=== PATIENT | male | born 1985 | race Caucasian/White ===

== ENCOUNTER → 2017-11-28 08:16 | Outpatient (POV) | payer SELFPAY | PROVIDERS: Visit Provider Dentist | DX: Z00.00 Encounter for general adult medical examination without abnormal findings (principal) ==

== ENCOUNTER → 2017-12-12 08:17 | Outpatient (POV) | payer SELFPAY | PROVIDERS: Visit Provider Dentist | DX: Z00.00 Encounter for general adult medical examination without abnormal findings (principal) ==

== ENCOUNTER 2021-04-11 07:21 | Emergency (ER) | payer OTHER, SELFPAY ==
[2021-04-11 07:22] VITALS: BP 142/82; PULSE 55; RESP 16; TEMP 36.8; O2SAT 99; BMI 21.7
--- NOTE | 2021-04-11 07:36 | CT_ITS ---
PROCEDURE: CT ABDOMEN PELVIS WO CON CLINICAL INDICATION: flank pain Left flank pain COMPARISON: No exams were available for comparison TECHNIQUE: Axial images obtained with sagittal and coronal reformats. All CT scans at the facility use one or more dose reduction, viz: automated exposure control, ma/kV adjustment per patient size (including targeted exams where dose is matched to indication, i.e. head), or iterative reconstruction technique. FINDINGS: LOWER THORAX: Gynecomastia. ABDOMEN & PELVIS: The liver, spleen, adrenal glands, and pancreas have an unremarkable appearance. Gallbladder is slightly distended. There are small bilateral renal calculi. The largest is in the left kidney measuring approximately 4 mm. There is mild left hydronephrosis and hydroureter secondary to a 4 mm stone in the distal aspect of the ureter approximately 1.5 cm proximal to the UVJ. No evidence of appendicitis. No intestinal obstruction or free air. Mild nonspecific thickening noted of the descending colon. No stranding of the pericolic fat. This may be due to nondistention. Please correlate with clinical parameters as mild colitis could have a similar appearance No acute bony findings. There are 2 too small sclerotic foci of the right femoral head which may be due to bone islands IMPRESSION: 4 mm distal ureteral stone on the left causing mild left-sided obstructive uropathy. Bilateral nephrolithiasis. Mild nonspecific thickening noted of the descending colon. No stranding of the pericolic fat. This may be due to nondistention. Please correlate with clinical parameters as mild colitis could have a similar appearance Dictated by: Kodak Donohue MD 04/11/2021 08:28 Kodak Donohue MD in [place] 04/11/2021 08:30
[2021-04-11 07:50] LABS: Coronavirus 19, PCR Not Detected (NotDetected); Influenza A, PCR Not Detected (NotDetected); Influenza B, PCR Not Detected (NotDetected)
[2021-04-11 07:57] LABS: Basophils % 0.6 % (0.1-2.0); Eosinophils # 0.1 K/mm3 (0.0-0.4); Eosinophils % 1.6 % (0.1-12.0); Hematocrit 46.6 % (42.0-52.0); Hemoglobin 15.9 g/dL (14.1-18.0); Lymphocytes # 1.2 K/mm3 (0.7-4.5); Lymphocytes % 29.2 % (10-50); Mean Corpuscular HGB Conc 34.1 g/dL (31.8-35.4); Mean Corpuscular Hemoglobin 30.3 pg (27.0-31.2); Mean Corpuscular Volume 88.8 fl (80-94); Mean Platelet Volume 7.7 fl (7.4-10.4); Monocytes # 0.3 K/mm3 (0.1-1.0); Monocytes % 6.3 % (1.7-9.3); Neutrophils # 2.6 K/mm3 (1.8-7.8); Neutrophils % 62.3 % (37.0-80.0); Platelet Count 212 K/mm3 (142-424); Red Blood Count 5.25 M/mm3 (4.60-6.20); Red Cell Distribution Width 12.8 % (11.5-17.5); White Blood Count 4.1 K/mm3 (4.8-10.8)
--- NOTE | 2021-04-11 07:58 | PC.NURSE ---
Pt is going to RAD
[2021-04-11 07:59] LABS: Microscopic, Urine URINE MICROSCOPIC (MICROSCOPIC)
[2021-04-11 08:00] LABS: Appearance,Urine CLEAR (Clear); Bilirubin,Urine Negative (Negative); Blood, Urine 3+ (Negative); Color,Urine YELLOW (Yellow); Glucose,Urine (UA) Negative (Negative); Ketones,Urine Negative (Negative); Leukocyte Esterase,Urine Negative (Negative); Nitrate,Urine Negative (Negative); PH,Urine 5.5 (5.0-8.5); Protein,Urine Negative (Negative); Specific Gravity, Urine >= 1.030 (1.005-1.030); Urobilinogen,Urine 0.2 EU/dl (0.2)
[2021-04-11 08:01] LABS: Chloride 106 mmol/L (98-107); Potassium 4.1 mmoL/L (3.5-5.1); Sodium 140 mmol/L (136-145)
[2021-04-11 08:03] LABS: Alanine Aminotransferase 19 U/L (12-78); Aspartate Amino Transferase 29 U/L (17-59); Blood Urea Nitrogen 15 mg/dl (9-20); Creatinine Clearance Estimated 107 mL/min (50-200); Estimated Glomerular Filt Rate 86 ml/min (>60); GFR (African American) 103 ML/MIN (>60)
[2021-04-11 08:04] LABS: Albumin Level 4.5 g/dl (3.5-5.0); Albumin/Globulin Ratio 1.7 (1.1-1.8); Alkaline Phosphatase 46 U/L (38-126); Anion Gap 11.1 mEq/L (5-15); Bilirubin,Total 0.2 mg/dl (0.2-1.3); Calcium 9.8 mg/dl (8.4-10.2); Carbon Dioxide 27 mmol/L (22.0-30.0); Globulin 2.7 g/dL (1.3-3.2); Glucose 116 mg/dl (74-100); Total Protein,Serum 7.2 g/dl (6.3-8.2)
--- NOTE | 2021-04-11 08:20 | HMH.EDGENADL ---
ED Disposition Clinical Impression: Left ureteral calculus Disposition: Home, Self-Care Condition on Discharge: Fair Instructions: DI for Kidney Stones Additional Instructions: Flomax as prescribed Percocet and/or Toradol as needed for pain. Zofran as needed for nausea and vomiting. Additional instructions for KIDNEY STONE (URETERAL CALCULUS): See your physician as soon as possible for further evaluation. Drink plenty of fluids. Strain your urine and save any stones you catch. Return immediately if you develop a fever or have uncontrollable vomiting or uncontrollable pain. What is known about DIET and KIDNEY STONES: Most kidney stones contain calcium oxalate. The logical assumption would be that you should avoid calcium and oxalate in your diet. Contrary to what you would think, this is not necessarily the case. What is actually recommended for kidney stone prevention is a diet that contains MODERATELY HIGH AMOUNTS OF CALCIUM and is LOW IN SODIUM with PLENTY OF FLUIDS. Avoiding oxalate containing foods is recommended by some experts, but is controversial. Following the DASH (Dietary Approaches to Stop Hypertention) has been shown to significantly reduce the incidence of kidney stones. The DASH diet encourages you to reduce the sodium in your diet and eat a variety of foods rich in nutrients that help lower blood pressure, such as potassium, calcium and magnesium. Recommendations: Fluids: It is widely agreed upon that you need to drink plenty of fluids. A minimum would be 8-10 glasses (8 oz each) of fluid per day. Some experts recommend as much as 14-15 glasses a day. Sodium: The way to lower calcium in your urine is to lower your sodium intake. Try not to get more than 1500 mg a day. Calcium: Dietary calcium prevents absorption of oxalate. Make sure you get about 1000 to 1200 mg a day. You can get enough calcium from dairy products without taking supplements. Calcium should be ingested with meals, not in between meals. You need to get your calcium at mealtime to decrease the absorption of oxalate from other foods. Oxalate: Although some experts recommend avoiding oxalate in your diet, there have been no studies that prove this works. Eating more calcium will reduce oxalate absorption, and is probably all that is needed to reduce oxalate in your urine. Oxalate containing foods are generally good for you in all other respects - leafy greens, nuts, etc... So avoiding them unnecessarily might not be the best thing for your health. If you want to do something to avoid oxalate, avoid spinach and rhubarb - those are extremely high in oxalate (or at least eat a high calcium meal with these). ALSO: If you retrieve your stone by straining your urine, take it to your physician for stone analysis, which can help tailor your dietary recommendations. For further reading, check out the [facility] web page about the kidney stone diet: [email or web address] Additional instructions for CONTROLLED SUBSTANCES: You have been prescribed a medication that is a controlled substance. Controlled substances include pain medications known as opiates and sedative nerve medications known as benzodiazepines. Tramadol, fioricet, and gabapentin are also controlled substances. Some common opiates include: Codeine (such as Tylenol #3) Hydrocodone (Vicodin, Lortab, Lorcet, [place]) Oxycodone (Percocet, Percodan, Oxycodone, Oxy IR) Some common benzodiazepines include: Diazepam (Valium) Lorazepam (Ativan) Alprazolam (Xanax) Clonazepam (Klonopin) Oxazepam (Serax) All of these controlled substances are highly addictive and frequently abused. Misuse can and frequently does lead to addiction as well as overdose and . Medication should be stored in a locked cabinet or other secure storage unit. Do not store the medication in a motor vehicle. Short term s
[2021-04-11 09:13] VITALS: BP 134/69; PULSE 67; RESP 16; TEMP 36.6; O2SAT 99
== END 2021-04-11 09:15 | disposition home or self-care (01) ==
PROVIDERS: Emergency Medicine; Emergency Provider Emergency Medicine
DX: N20.0 Calculus of kidney (principal); Z20.822 Contact with and (suspected) exposure to COVID-19
CPT/HCPCS: 74176; 80053; 81001; 85025; 96374; 96375; 99283; C9803; J2405; U0003; U0005

== ENCOUNTER 2021-06-12 20:28 | Emergency (ER) | payer OTHER, SELFPAY ==
--- NOTE | 2021-06-12 20:26 | ECG_ITS ---
APPROVED REPORT Exam: Resting ECG HR:85 bpm ECG Measurements Heart Rate 85 AXES MD 167 P 78 QRSd 99 QRS 74 QT 328 T 73 QTc 370 Conclusion SINUS RHYTHM POSSIBLE LEFT ATRIAL ENLARGEMENT [-0.1mV P-WAVE IN V1/V2] BORDERLINE ECG UNCONFIRMED REPORT Electronically signed by : Jon Barnett MD 06/13/2021 13:48:25
[2021-06-12 20:29] VITALS: BP 135/87; PULSE 84; RESP 20; TEMP 36.7; O2SAT 98; BMI 20.5
--- NOTE | 2021-06-12 20:40 | HMH.EDHA ---
ED Disposition Clinical Impression: Migraine Qualifiers: Migraine type: unspecified Status migrainosus presence: without status migrainosus Intractability: not intractable Qualified Code(s): G43.909 - Migraine, unspecified, not intractable, without status migrainosus Disposition: Home, Self-Care Condition on Discharge: Good Instructions: DI for Migraine Additional Instructions: use meds and see pcp and neuro for follow up Referrals: Provider,MD Sally [Primary Care Provider] - Casi Kowalski MD [Staff Physician] - - Critical Care Critical Care Time: No Attestation: On 06/12/21, the high probability of a clinically significant, sudden or life threatening deterioration of the following system(s) required my full and direct attention, intervention and personal management. The time I documented below is in addition to time spent performing reported procedures but includes the following listed in this critical care notation. Medical Decision Making - Medical Records Medical records reviewed: Yes: I reviewed the patient's medical records. - Mars Inquiry Pt receiving controlled substance: No Vital Signs: 06/12/21 20:29 Temperature 98.0 F Temperature Source Oral Pulse Rate [Apical] 84 Respiratory Rate 20 Blood Pressure [Right Arm] 135/87 Blood Pressure Mean [Right Arm] 103 Blood Pressure Source [Right Arm] Automatic Cuff Blood Pressure Position [Right Arm] Sitting 02 Sat by Pulse Oximetry 98 Oxygen Delivery Method Room Air - Lab Data Lab results reviewed: Yes: I reviewed the patient's lab results. Lab Results 06/12/21 20:31: WBC 11.1 H, RBC 5.41, Hgb 16.1, Hct 48.7, MCV 89.9, MCH 29.7, MCHC 33.1, RDW 13.1, Plt Count 221, MPV 8.3, Neut % (Auto) 91.1 H, Lymph % (Auto) 5.5 L, Gem % (Auto) 2.9, Eos % (Auto) 0.1, Baso % (Auto) 0.5, Neut # (Auto) 10.1 H, Lymph # (Auto) 0.6 L, Gem # (Auto) 0.3, Eos # (Auto) 0.0, Baso # (Auto) 0.1 06/12/21 20:31: Sodium 137, Potassium 3.8, Chloride 102, Carbon Dioxide 26, Anion Gap 12.8, BUN 13, Creatinine 0.90, Estimated Creat Clear 118, Estimated GFR 96, Est GFR ( Amer) 116, Glucose 142 H, Calcium 9.4, Total Bilirubin 1.0, AST 27, ALT 20, Alkaline Phosphatase 52, C-Reactive Protein 0.8, Total Protein 7.4, Albumin 4.7, Globulin 2.7, Albumin/Globulin Ratio 1.7, Procalcitonin 0.044 Result diagrams: 06/12/21 20:31 06/12/21 20:31 Orders (Tests/Meds): ED MEDICATIONS Generic Name Dose Route Start Last Admin Trade Name Freq PRN Reason Stop Dose Admin Sodium Chloride 1,000 mls @ 999 mls/hr 06/12/21 20:45 06/12/21 20:45 Sod Chlor 0.9% 1000ml Bag IV 06/12/21 21:45 999 mls/hr .Q1H1M YUMIKO Administration Discontinued Medications Generic Name Dose Route Start Last Admin Trade Name Freq PRN Reason Stop Dose Admin Diphenhydramine HCl 25 mg 06/12/21 20:41 06/12/21 20:45 Diphenhydramine 50mg/Ml Vial IV 06/12/21 20:42 25 mg ONCE ONE Administration Ketorolac Tromethamine 30 mg 06/12/21 20:39 06/12/21 20:45 Ketorolac 30mg/Ml Vial IV 06/12/21 20:40 30 mg ONCE ONE Administration Promethazine HCl 25 mg 06/12/21 20:39 06/12/21 20:45 Promethazine Hcl 25mg/Ml 1ml Vial IV 06/12/21 20:40 25 mg ONCE ONE Administration Sodium Chloride 25 ml 06/12/21 20:39 06/12/21 20:45 Sodium Chloride 0.9% 25ml Bag IV 06/12/21 20:40 25 ml ONCE ONE Administration ORDERS Category Date Time Status Complete Blood Count Auto Diff Stat Lab 06/12/21 20:31 Results Erythrocyte Sedimentation Rate Stat Lab 06/12/21 20:31 Results Medical Decision Narrative: has hx of same with migraine and will treat as migraine Headache HPI - General Chief Complaint: Headache Stated Complaint: left sided numbness Time Seen by Provider: 06/12/21 20:40 Mode of Arrival: Ambulatory Source of Information: Patient, EMS, Medical Record Limitations: No Limitations Description of Symptoms (Recalled from ER Triage Doc. by RN): Pt states at 3 pm he began
[2021-06-12 20:51] LABS: Basophils # 0.1 K/mm3 (0-0.2); Basophils % 0.5 % (0.1-2.0); Eosinophils % 0.1 % (0.1-12.0); Hematocrit 48.7 % (42.0-52.0); Hemoglobin 16.1 g/dL (14.1-18.0); Lymphocytes # 0.6 K/mm3 (0.7-4.5); Lymphocytes % 5.5 % (10-50); Mean Corpuscular HGB Conc 33.1 g/dL (31.8-35.4); Mean Corpuscular Hemoglobin 29.7 pg (27.0-31.2); Mean Corpuscular Volume 89.9 fl (80-94); Mean Platelet Volume 8.3 fl (7.4-10.4); Monocytes # 0.3 K/mm3 (0.1-1.0); Monocytes % 2.9 % (1.7-9.3); Neutrophils # 10.1 K/mm3 (1.8-7.8); Neutrophils % 91.1 % (37.0-80.0); Platelet Count 221 K/mm3 (142-424); Red Blood Count 5.41 M/mm3 (4.60-6.20); Red Cell Distribution Width 13.1 % (11.5-17.5); White Blood Count 11.1 K/mm3 (4.8-10.8)
[2021-06-12 20:52] LABS: Alanine Aminotransferase 20 U/L (12-78); Albumin Level 4.7 g/dl (3.5-5.0); Albumin/Globulin Ratio 1.7 (1.1-1.8); Alkaline Phosphatase 52 U/L (38-126); Anion Gap 12.8 mEq/L (5-15); Aspartate Amino Transferase 27 U/L (17-59); Blood Urea Nitrogen 13 mg/dl (9-20); Calcium 9.4 mg/dl (8.4-10.2); Carbon Dioxide 26 mmol/L (22.0-30.0); Chloride 102 mmol/L (98-107); Creatinine Clearance Estimated 118 mL/min (50-200); Estimated Glomerular Filt Rate 96 ml/min (>60); GFR (African American) 116 ML/MIN (>60); Globulin 2.7 g/dL (1.3-3.2); Glucose 142 mg/dl (74-100); Potassium 3.8 mmoL/L (3.5-5.1); Sodium 137 mmol/L (136-145); Total Protein,Serum 7.4 g/dl (6.3-8.2)
[2021-06-12 20:57] LABS: C-Reactive Protein 0.8 mg/L (0-4)
[2021-06-12 21:06] LABS: MANUAL DIFFERENTIAL MANUAL DIFFERENTIAL (MANUAL DIFF)
[2021-06-12 21:11] LABS: Procalcitonin 0.044 ng/mL (0.0-2.0)
[2021-06-12 21:27] VITALS: BP 130/80; PULSE 80; RESP 20; TEMP 36.8; O2SAT 99
[2021-06-12 22:02] LABS: Erythrocyte Sedimentation Rate 1 mm/hr (0-15)
[2021-06-12 22:23] LABS: Lymphocytes % 8 % (10-50); Monocytes % 4 % (2-9); Neutrophils % 87 % (42-76); Platelet Estimate Normal; Total Cells Counted 100
== END 2021-06-12 21:28 | disposition home or self-care (01) ==
PROVIDERS: Emergency Provider Emergency Medicine
DX: G43.909 Migraine, unspecified, not intractable, without status migrainosus (principal)
CPT/HCPCS: 80053; 84145; 85007; 85025; 85651; 86140; 93005; 96365; 96375; 99282; 99284

== ENCOUNTER 2022-01-13 10:06 | Emergency (ER) | payer MEDICAID, SELFPAY ==
--- NOTE | 2022-01-13 10:21 | EXP.UTC ---
Discharge Plan Disposition Patient Disposition: Home, Self-Care Condition: Good Prescriptions Prescriptions: No Action amoxicillin 500 MG Capsule 500 mg PO TID hydrocodone-acetaminophen 1 TAB Tablet 1 - 2 tab PO Q6HP PRN (Reason: DENTAL PAIN AFTER PROCEDURE) ibuprofen 600 MG Tablet 600 mg PO Q6H PRN (Reason: DENTAL PAIN AFTER PROCEDURE) oxycodone-acetaminophen 1 EACH tablet 1 tab PO Q6HP PRN (Reason: Moderate To Severe Pain) Qty: 10 0RF ketorolac 10 MG tablet 10 mg PO Q6HP PRN (Reason: Moderate Pain) Qty: 10 0RF tamsulosin 0.4 MG capsule 0.4 mg PO HS Qty: 10 0RF ondansetron 4 MG tablet,disintegrating 4 mg PO TIDP PRN (Reason: Nausea And Vomiting) Qty: 10 0RF Referrals Follow up/Referrals: Provider,Referral, MD [Primary Care Provider] - See instructions Activity Restrictions/Add. Instructions Additional Instructions/Restrictions: Follow up with your regular doctor or return here for any issues. Clinical Impressions Clinical Impression: Encounter for drug screening Instructions Patient Instructions: Toxicology Screen, Drug Tests: Don't Fall Victim to a 'False-Positive' Discharge ED Provider: Willy Shine [facility] HPI General Stated complaint: blood test Time Seen by Provider: 01/13/22 10:18 History of Present Illness Provider Complaint: He is here because he was advised by the state family welfare social work professor to have a urine drug screen done here. The mother of his child has made accusations that he is taking illicit drugs. He denies this accusation. He denies that the uds needs to be collected with chain of custody forms. He states that he was told to just get a drug screen done here first. Related Data Home Medications Medication Instructions Recorded Confirmed amoxicillin 500 mg capsule 500 mg PO TID TOOTH INFECTION 12/05/17 12/05/17 hydrocodone 5 mg-acetaminophen 325 1 - 2 tab PO Q6HP PRN DENTAL PAIN 12/05/17 12/05/17 mg tablet AFTER PROCEDURE ibuprofen 600 mg tablet 600 mg PO Q6H PRN DENTAL PAIN 12/05/17 12/05/17 AFTER PROCEDURE Previous Rx's Medication Instructions Recorded ketorolac 10 mg tablet 10 mg PO Q6HP PRN Moderate Pain 04/11/21 #10 tabs ondansetron 4 mg disintegrating 4 mg PO TIDP PRN Nausea And 04/11/21 tablet Vomiting #10 tabs oxycodone-acetaminophen 5 mg-325 1 tab PO Q6HP PRN Moderate To 04/11/21 mg tablet Severe Pain #10 tabs tamsulosin 0.4 mg capsule 0.4 mg PO HS #10 caps 04/11/21 Allergies Allergy/AdvReac Type Severity Reaction Status Date / Time No Known Allergies Allergy Verified 01/13/22 10:27 PFSH PFS Social History Smoking Status: Never smoker alcohol intake: never current occupational status: employed Travel in the last 8 weeks: None 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 current occupational exposures/hazards: Yes ROS Obtained: Yes All systems reviewed & no additional complaints except as documented Constitutional Constitutional: Reports system reviewed and no additional complaints, except as documented, Denies chills and Denies fever(s) Eyes Eyes: Denies eye discharge ENT Ears, Nose, Mouth, and Throat: Denies dysphagia, Denies sore throat and Denies throat swelling Cardiovascular Cardiovascular: Denies chest pain and Denies dyspnea Respiratory Respiratory: Denies chest congestion, Denies cough and Denies dyspnea Gastrointestinal Gastrointestingal: Denies abdominal pain, constipation, diarrhea, dysphagia, nausea or vomiting Musculoskeletal Musculoskeletal: Denies arthralgias Integumentary/Breasts Skin/Breast: Denies rash Neurologic Neurologic: Denies paresthesias Allergic/Immunologic Allergic/Immunologic: Denies throat swelling Physical Exam General General appearance: alert and in no apparent distress Head Head exam: atraumatic, normocephalic and normal inspection Eye Eye exam: Present normal appearance, PERRL and EOMI ENT ENT exam: Present normal
[2022-01-13 10:25] VITALS: BP 121/101; PULSE 64; RESP 16; TEMP 36.7; O2SAT 98; BMI 21.7
[2022-01-13 10:48] LABS: Barbiturates Screen,Urine Negative ng/ml (<200)
[2022-01-13 10:49] LABS: Amphetamine/Metha Screen,Urine Negative ng/ml (<1000); Benzodiazepines Screen,Urine Negative ng/ml (<200)
[2022-01-13 10:50] LABS: Cannabinoid Screen,Urine Negative ng/ml (<50)
[2022-01-13 10:51] LABS: Cocaine Screen,Urine Negative ng/ml (<300); Methadone Screen,Urine Negative ng/ml (<300)
[2022-01-13 10:52] LABS: Opiate Screen,Urine Negative ng/ml (<300)
[2022-01-13 10:53] LABS: Phencyclidine Screen,Urine Negative ng/ml (<25)
[2022-01-13 10:55] VITALS: BP 121/101; PULSE 64; RESP 16; TEMP 36.7
== END 2022-01-13 11:01 | disposition home or self-care (01) ==
PROVIDERS: Emergency Provider Nurse Practitioner Family
DX: Z02.83 Encounter for blood-alcohol and blood-drug test (principal)
CPT/HCPCS: 80305; 99212; G0463

== ENCOUNTER 2023-01-20 14:26 | Emergency (ER) | payer SELFPAY ==
[2023-01-20 14:35] VITALS: BP 124/80; PULSE 81; RESP 18; TEMP 36.8; O2SAT 98; BMI 23.8
--- NOTE | 2023-01-20 14:55 | EXP.UTC ---
Discharge Plan Disposition Patient Disposition: Home, Self-Care Condition: Good Prescriptions Prescriptions: New [id number]-[id number] [Bromfed DM] 2-30-10 mg/5 mL Syrup 10 ml PO Q4H PRN (Reason: Cough) Qty: 240 0RF Referrals Follow up/Referrals: Provider,Referral, [Primary Care Provider] - See instructions Activity Restrictions/Add. Instructions Additional Instructions/Restrictions: *Monitor Temp, Over the counter Motrin or Tylenol as directed/as needed Tylenol every 4 hours and Motrin every 6 hours (as long as your family doctor has told you that you can take it) for fever or pain. and straight to ER if unable to lower temp less than 101.0 after medication given *Warm salt water gargles may help to soothe the throat *Throat Lozenges? *Warm fluids like tea with honey may help to soothe the throat? *Sleep elevated *Humidifier/Vaporizer Your throat swab was sent for culture. Those results are typically sent to your primary care. Be sure to follow up in 2-3 days with your family doctor/primary care physician if no improvement so they can review those result and treat if necessary. If you don?t have a primary care doctor, I recommend you get one but in the mean time, you will have to return to a walk in clinic Follow up IMMEDIATELY for new or worsening symptoms or no Noticeable improvement over the next 48-72 hours. 911 for difficulty breathing or swallowing You were tested for today for COVID19 your test result should be back in the next 24 hours You may check your results on the [facility] My Health Portal if your COVID is positive you will need to Quarantine for 5 days per CDC recommendations Clinical Impressions Clinical Impression: Viral upper respiratory tract infection with cough Stand Alone Forms Stand Alone Forms: Work/School Release Instructions Patient Instructions: Cough, Sore Throat Discharge ED Provider: Leticia Rodrigues [facility] [place] General Stated complaint: fatigue, sore throat Mode of Arrival: Ambulatory Source of Information: Patient Limitations: No Limitations Time Seen by Provider: 01/20/23 14:55 Description of Symptoms (Recalled from Triage Doc. by RN): PATIENT C/O SORE THROAT, COUGH, AND BODY ACHES X 3 DAYS HEENT Symptoms (Recalled from RN notes): Yes Resp Symptoms (Recalled from RN notes): Yes Skin Symptoms (Recalled from RN notes): No MS Symptoms (Recalled from RN notes): No Functional Status (Recalled from RN notes): WNL History of Present Illness Provider Complaint: Patient states that he has been having sore throat, cough, body aches, and nasal congestion for about 3 days States that today he wasnt feeling any better and feeling tired and achy so he came in worried he may have strep throat or something Related Data Previous Rx's Medication Instructions Recorded drnrnynjkrfdgaj-[id number] 10 ml PO Q4H PRN Cough #240 mL 01/20/23 2 mg-30 mg-10 mg/5 mL oral syrup (Bromfed DM) Allergies Allergy/AdvReac Type Severity Reaction Status Date / Time No Known Allergies Allergy Verified 01/13/22 10:27 Worker's Comp Is this a Worker's Comp case?: No [facility] Dis[facility]: The information contained in this section may have been updated after the patient was seen, as this information can be updated by other users. 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
[2023-01-20 14:56] LABS: UTC Strep Screen (Rapid) Negative (Negative)
[2023-01-20 15:02] VITALS: BP 124/80; PULSE 81; RESP 18; TEMP 36.8; O2SAT 98
== END 2023-01-20 15:04 | disposition home or self-care (01) ==
PROVIDERS: Emergency Provider Nurse Practitioner
DX: J06.9 Acute upper respiratory infection, unspecified (principal); R05.9 Cough, unspecified; R53.83 Other fatigue; R09.81 Nasal congestion; G43.909 Migraine, unspecified, not intractable, without status migrainosus
CPT/HCPCS: 87635; 87880; 99212; 99214; G0463

== ENCOUNTER 2023-06-05 08:36 | Emergency (ER) | payer OTHER, SELFPAY ==
[2023-06-05 08:45] VITALS: BP 130/90; PULSE 62; RESP 19; TEMP 37.1; O2SAT 98; BMI 16.2
--- NOTE | 2023-06-05 08:54 | ED_ITS ---
Discharge Plan Disposition Patient Disposition: Home, Self-Care Condition: Good Prescriptions Prescriptions: New ibuprofen [IBU] 800 mg tablet 800 mg PO Q8HP PRN (Reason: Moderate Pain) Qty: 30 1RF ondansetron 4 mg Tablet,Disintegrating 4 mg PO Q8H PRN (Reason: Nausea) Qty: 12 1RF Referrals Follow up/Referrals: Provider,Referral, MD [Primary Care Provider] - See instructions Activity Restrictions/Add. Instructions Additional Instructions/Restrictions: Drink plenty of fluids. Take tylenol or ibuprofen for your symptoms. I sent in prescription strength ibuprofen. Take the zofran (ondesetron) as directed for nausea/vomiting. Follow up with your regular doctor. We are giving you a list of primary care physicians that are currently taking new patients. Please call and get yourself a follow up appointment. GO TO THE ER FOR ANY WORSENING SYMPTOMS Clinical Impressions Clinical Impression: Migraine, Nausea & vomiting Stand Alone Forms Stand Alone Forms: Work/School Release Instructions Patient Instructions: Migraine -- Adult Discharge ED Provider: Willy Shine [facility] General Stated complaint: tired nausea Time Seen by Provider: 06/05/23 08:54 History of Present Illness Provider Complaint: He states that for the past 1 week he has been waking up in the mornings with headache, nausea, vomiting, and sinus congestion. He states that as the day goes on he gets to feeling better, but today he was at work and he vomited. His employer told him to leave work and to come and get checked out. He states that he has had a life long history of migraines that had not bothered him over the past year or so, but this feels like his migraine symptoms acting up. He does not currently take anything for migraine, but in the past he has been on beta blockers and topamax. Related Data Previous Rx's Medication Instructions Recorded ibuprofen 800 mg tablet (IBU) 800 mg PO Q8HP PRN Moderate Pain 06/05/23 #30 tabs ondansetron 4 mg disintegrating 4 mg PO Q8H PRN Nausea #12 tabs 06/05/23 tablet Allergies Allergy/AdvReac Type Severity Reaction Status Date / Time No Known Allergies Allergy Verified 06/05/23 09:09 [facility] Disclaimer: The information contained in this section may have been updated after the patient was seen, as this information can be updated by other users. 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 current occupational exposures/hazards: Yes ROS Obtained: Yes All systems reviewed & no additional complaints except as documented Constitutional Constitutional: Denies chills, Denies fever(s), Denies frequent falls, Reports headache(s) and Denies weakness Eyes Eyes: Denies eye discharge and Denies loss of vision ENT Ears, Nose, Mouth, and Throat: Denies disequilibrium, Denies dizziness, Denies otalgia, Reports headache(s), Denies neck pain, Denies sore throat and Denies vertigo Cardiovascular Cardiovascular: Denies chest pain and Denies syncope Respiratory Respiratory: Denies shortness of breath, Denies chest congestion, Denies cough, Denies stridor and Denies wheezing Gastrointestinal Gastrointestingal: Denies nausea or vomiting Musculoskeletal Musculoskeletal: Reports system reviewed and no additional complaints, except as documented, Denies arthralgias, Denies back pain, Denies neck pain, Denies numbness and Denies tingling Integumentary/Breasts Skin/Breast: Denies rash Neurologic Neurologic: Reports as per HPI, Denies confusion, Denies disequilibrium, Denies dizziness, Denies frequent falls, Reports headache(s), Denies lack of coordination, Denies loss of vision, Denies memory loss, Denies numbness, Denies other visual disturbances, Denies paresthesias, Denies radicular pain, Denies syncope, Denies tingling, Denies tremor(s), Denies vertigo and Denies weakness Allergic/Immunologic Allergic/Immunologic: Denies wheezing Physical Exam General General appearance: alert and in no apparent distress Head Head exam: atraumatic, normocephalic and normal inspection Eye Eye exam: Present normal appearance, PERRL and EOMI ENT ENT exam: Present normal exam, normal oropharynx, mucous membranes moist, TM's normal bilaterally and normal external ear exam Neck Neck exam: Present normal inspection, full ROM and trachea midline; Absent meningismus or lymphadenopathy Chest Chest inspection: Present normal inspection and symmetric chest wall rise; Absent tenderness Respiratory Respiratory exam: Present normal lung sounds bilaterally; Absent respiratory distress Cardiovascular Cardiovascular exam: Present regular rate and normal rhythm; Absent JVD Abdominal Exam Abdominal exam: Present soft and normal bowel sounds; Absent distention, tenderness or guarding Extremities Exam Extremities exam: Present normal inspection, full ROM and normal capillary refil l; Absent calf tenderness Back Exam Back exam: Present normal inspection; Absent tenderness Neurological Exam Neurological exam: Present alert, oriented X3, CN II-XII intact, normal gait and reflexes normal; Absent motor sensory deficit Expanded Neurological Exam Patient oriented to: Present person, place and time Speech: Present fluid speech Cranial nerves: Normal: EOM function (II, III, IV, ), facial sensation (V), facial palsy (VII), gag reflex (IX), spinal accessory function (XI) and tongue deviation (XII) Cerebellar function: normal gait and Romberg normal Motor strength - LUE: 5/5 Motor strength - RUE: 5/5 Motor strength - LLE: 5/5 Motor strength - RLE: 5/5 Upper motor neuron exam: Normal: bertha neglect and sensory extinction Sensory exam upper extremity: Normal: light touch and 2 point discrimination Sensory exam lower extremity: Normal: light touch and 2 point discrimination DTR: 2+: biceps (L), biceps (R), patellar (L), patellar (R), Achilles tendon (L) and Achilles tendon (R) Spinal cord function: Absent saddle anesthesia Psychiatric Psychiatric exam: Present normal affect and normal mood Skin Skin exam: Present warm, dry, intact and normal color Lymphatic Lymphatic Findings: no adenopathy Medical Decision Making Medical Records Medical records reviewed: No I reviewed the patient's medical records. Mars Inquiry Pt receiving controlled substance: No Lab Data Lab results reviewed: Yes I reviewed the patient's lab results.
[2023-06-05 09:31] LABS: UTC Influenza A Antigen Negative (Negative)
[2023-06-05 09:31] LABS: UTC Strep Screen (Rapid) Negative (Negative)
[2023-06-05 09:32] LABS: UTC Influenza B Antigen Negative (Negative)
[2023-06-05 10:04] VITALS: BP 130/90; PULSE 62; RESP 19; TEMP 37.1; O2SAT 98
== END 2023-06-05 10:04 | disposition home or self-care (01) ==
PROVIDERS: Emergency Provider Nurse Practitioner Family
DX: G43.909 Migraine, unspecified, not intractable, without status migrainosus (principal); R11.2 Nausea with vomiting, unspecified
CPT/HCPCS: 87804; 87880; 99212; 99214; G0463

== ENCOUNTER 2023-06-13 11:05 | Emergency (ER) | payer OTHER, SELFPAY ==
[2023-06-13] VITALS (17 sets, daily range): BP systolic 117–154; BP diastolic 81–102; PULSE 6–74; RESP 16–18; TEMP 36.6–36.8; O2SAT 97–99; BMI 23.0
--- NOTE | 2023-06-13 11:20 | ECG_ITS ---
APPROVED REPORT Exam: Resting ECG HR:55 bpm ECG Measurements Heart Rate 55 AXES IL 152 P 70 QRSd 106 QRS 56 QT 356 T 33 QTc 346 Conclusion SINUS BRADYCARDIA BORDERLINE ECG UNCONFIRMED REPORT Electronically signed by : Jon Barnett MD 06/13/2023 16:33:13
--- NOTE | 2023-06-13 11:45 | CT_ITS ---
FINAL REPORT TECHNIQUE: Axial CT images were performed through the head. Coronal and sagittal reformatted images were submitted. This study was performed with techniques to keep radiation doses as low as reasonably achievable (ALARA). Individualized dose reduction techniques using automated exposure control or adjustment of mA and/or kV according to the patient's size were employed. CLINICAL HISTORY: daily AM headaches, new - nausea COMPARISON: None FINDINGS: The ventricles are normal in size. There is no evidence of hemorrhage. There is no mass or edema identified. There is no abnormal extra-axial fluid seen. There is lobular mucoperiosteal thickening in the left maxillary sinus. IMPRESSION: No acute intracranial process. Lobular mucoperiosteal thickening in the left maxillary sinus. Reviewed, Interpreted and Dictated by Abilio Mari MD Transcribed by Michelle Savage Authenticated and [facility]
[2023-06-13 11:56] LABS: Alanine Aminotransferase 21 U/L (12-78); Albumin Level 4.7 g/dl (3.5-5.0); Albumin/Globulin Ratio 1.7 (1.1-1.8); Alkaline Phosphatase 63 U/L (38-126); Anion Gap 10.8 mEq/L (5-15); Aspartate Amino Transferase 28 U/L (17-59); Blood Urea Nitrogen 12 mg/dl (9-20); Calcium 9.9 mg/dl (8.4-10.2); Carbon Dioxide 30 mmol/L (22.0-30.0); Chloride 103 mmol/L (98-107); Creatinine Clearance Estimated 110 mL/min (50-200); Estimated Glomerular Filt Rate 84 ml/min (>60); GFR (African American) 102 ML/MIN (>60); Globulin 2.7 g/dL (1.3-3.2); Glucose 96 mg/dl (74-100); Lipase 53 U/L (23-300); Potassium 3.8 mmoL/L (3.5-5.1); Sodium 140 mmol/L (136-145); Total Protein,Serum 7.4 g/dl (6.3-8.2)
--- NOTE | 2023-06-13 11:58 | ED_ITS ---
Discharge Plan Disposition Patient Disposition: Home, Self-Care Condition: Good Prescriptions Prescriptions: New hydroxyzine HCl 25 mg tablet 25 mg PO Q8H PRN (Reason: anxiety) Qty: 20 0RF pantoprazole 40 mg tablet,delayed release (DR/EC) 40 mg PO DAILY Qty: 30 0RF No Action ibuprofen [IBU] 800 mg tablet 800 mg PO Q8HP PRN (Reason: Moderate Pain) Qty: 30 1RF ondansetron 4 mg Tablet,Disintegrating 4 mg PO Q8H PRN (Reason: Nausea) Qty: 12 1RF Referrals Follow up/Referrals: Иван Agosto DO [Staff Physician] - See instructions Provider,Referral, [Primary Care Provider] - See instructions Activity Restrictions/Add. Instructions Additional Instructions/Restrictions: You were evaluated in the emergency department today. We feel that your symptom s are most likely manifestation of anxiety. It is possibly could also have excess stomach acid causing your morning nausea and other symptoms. For this, I am prescribing you pantoprazole to try. Please take this daily to see if it improves your symptoms. I also sent in hydroxyzine for you to have as needed for panic attacks and anxiety. This is not meant to be taken regularly, but you can take it if you have severe symptoms. It may make you sleepy. Please follow-up very closely with a primary care provider. You may follow-up with one of your choosing, but we have provided you with information for Dr. Agosto if you wish to see him. Return to the emergency department for new or worsening symptoms, such as significant vision changes, difficulty walking, numbness, tingling, or other concerns. Clinical Impressions Clinical Impression: Chronic tension type headache, Nausea, Anxiety Instructions Patient Instructions: DI for Anxiety -- Adult, DI for Nausea -- Adult, DI for Headache Discharge ED Provider: Leeanna Kim General Adult HPI General Chief complaint: Nausea/Vomiting/Diarrhea Stated complaint: vomiting, weak Time Seen by Provider: 06/13/23 11:27 Mode of Arrival: Ambulatory Source of Information: Patient Limitations: No Limitations Description of Symptoms (Recalled from ER Triage Doc. by RN): c/o tired, f atigue, nauseated, vomiting, heart rate been up, dizziness, anxiety and stress for a few months, the past two weeks he reports that when he stands up he sees spots and feels as if he will pass out. History of Present Illness HPI narrative: This patient is a 38-year-old male who reports history of migraines and does not follow regularly with a doctor presenting to the emergency department for evaluation with multiple complaints. Patient states that for the last few months, he has felt fatigue, nausea in the mornings, frequent headaches, anxiety, stress, and changes in his heart rate. He states that sometimes whenever he stands up, he sees spots and feels like he may pass out. He said that he thinks that it may be stress given that he just recently got full custody of his daughter, and she has been having issues at home. He also notes that he works a lot and works long hours at [employer]. He notes that his biggest concern is the daily headaches and nausea, which is improved some after Zofran and Tylenol. He states that it seems to happen in the first few hours of each morning. He denies any fevers, numbness, tingling, weakness, chest pain, shortness of breath, localizable abdominal pain, changes in bowel movements, or other concerns. He does note that he has had a gradual decrease in his vision, for which he needs to see an eye doctor to see about getting glasses, but he has not done so. No acute changes. He does note that he has been obsessively watching his Apple Watch and noting that his heart rate will occasionally go up as high as the low 100s. He typically is in the 60s range, so this concerns him. Related Data Previous Rx's Medication Instructions Recorded ibuprofen 800 mg tablet (IBU) 800 mg PO Q8HP PRN Moderate Pain 06/05/23 #30 tabs ondansetron 4 mg disintegrating 4 mg PO Q8H PRN Nausea #12 tabs 06/05/23 tablet hydroxyzine HCl 25 mg tablet 25 mg PO Q8H PRN anxiety #20 tabs 06/13/23 pantoprazole 40 mg tablet,delayed 40 mg PO DAILY #30 tabs 06/13/23 release Allergies Allergy/AdvReac Type Severity Reaction Status Date / Time No Known Allergies Allergy Verified 06/05/23 09:09 [facility] Disclaimer: The information contained in this section may have been updated after the fabienne ent was seen, as this information can be updated by other users. 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 current occupational exposures/hazards: Yes ROS Obtained: Yes All systems reviewed & no additional complaints except as documented Physical Exam General General appearance: alert, in no apparent distress and anxious Head Head exam: atraumatic and normocephalic Eye Eye exam: Present normal appearance, PERRL and EOMI ENT ENT exam: Present normal exam, normal oropharynx, mucous membranes moist and normal external ear exam Neck Neck exam: Present normal inspection, full ROM and trachea midline; Absent tenderness Chest Chest inspection: Present normal inspection and symmetric chest wall rise; Absent tenderness Respiratory Respiratory exam: Present normal lung sounds bilaterally; Absent respiratory distress, wheezes, stridor or accessory muscle use Cardiovascular Cardiovascular exam: Present regular rate and normal rhythm Abdominal Exam Abdominal exam: Present soft; Absent distention, tenderness or guarding Extremities Exam Extremities exam: Present normal inspection, full ROM and normal capillary refill; Absent tenderness or edema Back Exam Back exam: Present normal inspection and full ROM; Absent tenderness Neurological Exam Neurological exam: Present alert, oriented X3, CN II-XII intact and normal gait; Absent motor sensory deficit Psychiatric Psychiatric exam: Present anxious Skin Skin exam: Present warm and dry Medical Decision Making Medical Records Medical records reviewed: Yes I reviewed the patient's medical records. Mars Inquiry Pt receiving controlled substance: No Vital Signs: 06/13/23 11:59 06/13/23 11:06 06/13/23 11:10 Temperature 98 F Temperature Source Oral Pulse Rate 69 Pulse Rate [Left Radial] 62 Pulse Rate [Orthostatic Lying Right Radial] 62 Pulse Rate [Orthostatic Sitting Right Radial] 59 L Pulse Rate [Orthostatic Standing Right Radial] 68 Respiratory Rate 18 Blood Pressure 143/99 H Blood Pressure [Orthostatic Lying] 129/87 Blood Pressure [Orthostatic Sitting Right Arm] 137/93 H Blood Pressure [Orthostatic Standing Right Arm] 154/98 H Blood Pressure [Right Arm] 143/99 H Blood Pressure Mean Blood Pressure Mean [Right Arm] 113 Blood Pressure Source Blood Pressure Source [Right Arm] Automatic Cuff Blood Pressure Position Blood Pressure Position [Right Arm] Sitting 02 Sat by Pulse Oximetry 99 97 Oxygen Delivery Method Room Air Room Air 02/22/24 11:20 06/13/23 12:11 06/13/23 12:28 Temperature Temperature Source Pulse Rate 65 67 58 L Pulse Rate [Left Radial] Pulse Rate [Orthostatic Lying Right Radial] Pulse Rate [Orthostatic Sitting Right Radial] Pulse Rate [Orthostatic Standing Right Radial] Respiratory Rate Blood Pressure 141/102 H 117/85 129/87 Blood Pressure [Orthostatic Lying] Blood Pressure [Orthostatic Sitting Right Arm] Blood Pressure [Orthostatic Standing Right Arm] Blood Pressure [Right Arm] Blood Pressure Mean 101 Blood Pressure Mean [Right Arm] Blood Pressure Source Blood Pressure Source [Right Arm] Blood Pressure Position Blood Pressure Position [Right Arm] 02 Sat by Pulse Oximetry 98 98 98 Oxygen Delivery Method Room Air Room Air Room Air 06/13/23 12:29 06/13/23 12:30 06/13/23 12:40 Temperature Temperature Source Pulse Rate 67 69 60 Pulse Rate [Left Radial] Pulse Rate [Orthostatic Lying Right Radial] Pulse Rate [Orthostatic Sitting Right Radial] Pulse Rate [Orthostatic Standing Right Radial] Respiratory Rate Blood Pressure 137/93 H 154/98 H 122/81 Blood Pressure [Orthostatic Lying] Blood Pressure [Orthostatic Sitting Right Arm] Blood Pressure [Orthostatic Standing Right Arm] Blood Pressure [Right Arm] Blood Pressure Mean 108 107 94 Blood Pressure Mean [Right Arm] Blood Pressure Source Blood Pressure Source [Right Arm] Blood Pressure Position Blood Pressure Position [Right Arm] 02 Sat by Pulse Oximetry 97 98 97 Oxygen Delivery Method Room Air Room Air Room Air 06/13/23 12:50 06/13/23 13:00 06/13/23 13:10 Temperature Temperature Source Pulse Rate 63 68 74 Pulse Rate [Left Radial] Pulse Rate [Orthostatic Lying Right Radial] Pulse Rate [Orthostatic Sitting Right Radial] Pulse Rate [Orthostatic Standing Right Radial] Respiratory Rate Blood Pressure 128/83 127/83 130/91 H Blood Pressure [Orthostatic Lying] Blood Pressure [Orthostatic Sitting Right Arm] Blood Pressure [Orthostatic Standing Right Arm] Blood Pressure [Right Arm] Blood Pressure Mean 94 94 Blood Pressure Mean [Right Arm] Blood Pressure Source Blood Pressure Source [Right Arm] Blood Pressure Position Blood Pressure Position [Right Arm] 02 Sat by Pulse Oximetry 98 98 99 Oxygen Delivery Method Room Air Room Air Room Air 06/13/23 13:20 06/13/23 13:30 06/13/23 13:40 Temperature Temperature Source Pulse Rate 63 63 64 Pulse Rate [Left Radial] Pulse Rate [Orthostatic Lying Right Radial] Pulse Rate [Orthostatic Sitting Right Radial] Pulse Rate [Orthostatic Standing Right Radial] Respiratory Rate Blood Pressure 124/89 126/87 124/88 Blood Pressure [Orthostatic Lying] Blood Pressure [Orthostatic Sitting Right Arm] Blood Pressure [Orthostatic Standing Right Arm] Blood Pressure [Right Arm] Blood Pressure Mean Blood Pressure Mean [Right Arm] Blood Pressure Source Blood Pressure Source [Right Arm] Blood Pressure Position Blood Pressure Position [Right Arm] 02 Sat by Pulse Oximetry 98 98 99 Oxygen Delivery Method Room Air Room Air Room Air 06/13/23 13:50 06/13/23 14:10 Temperature 98.2 F Temperature Source Oral Pulse Rate 67 6 L Pulse Rate [Left Radial] Pulse Rate [Orthostatic Lying Right Radial] Pulse Rate [Orthostatic Sitting Right Radial] Pulse Rate [Orthostatic Standing Right Radial] Respiratory Rate 16 Blood Pressure 131/92 H 130/94 H Blood Pressure [Orthostatic Lying] Blood Pressure [Orthostatic Sitting Right Arm] Blood Pressure [Orthostatic Standing Right Arm] Blood Pressure [Right Arm] Blood Pressure Mean Blood Pressure Mean [Right Arm] Blood Pressure Source Automatic Cuff Blood Pressure Source [Right Arm] Blood Pressure Position Sitting Blood Pressure Position [Right Arm] 02 Sat by Pulse Oximetry 99 Oxygen Delivery Method Room Air Room Air Lab Data Lab results reviewed: Yes I reviewed the patient's lab results. Lab Results 06/13/23 11:27: WBC 5.3, RBC 5.36, Hgb 16.5, Hct 49.2, MCV 91.9, MCH 30.9, MCHC 33.6, RDW 13.1, Plt Count 237, MPV 8.4, Neut % (Auto) 67.6, Lymph % (Auto) 24.9, Hood % (Auto) 6.7, Eos % (Auto) 0.5, Baso % (Auto) 0.4, Neut # (Auto) 3.6, Lymph # (Auto) 1.3, Hood # (Auto) 0.4, Eos # (Auto) 0.0, Baso # (Auto) 0.0, Sodium 140, Potassium 3.8, Chloride 103, Carbon Dioxide 30, Anion Gap 10.8, BUN 12, Creatinine 1.00, Estimated Creat Clear 110, Estimated GFR 84, Est GFR ( Amer) 102, Glucose 96, Calcium 9.9, Total Bilirubin 1.0, AST 28, ALT 21, Alkaline Phosphatase 63, Total Protein 7.4, Albumin 4.7, Globulin 2.7, Albumin/Globulin Ratio 1.7, Lipase 53, TSH 0.84, Thyroxine (T4) 8.8 06/13/23 12:21: Urine Color Yellow, Urine Appearance Clear, Urine pH 7.0, Ur Specific Freedom 1.015, Urine Protein Negative, Urine Glucose (UA) Negative, Urine Ketones Negative, Urine Blood Negative, Urine Nitrate Negative, Urine Bilirubin Negative, Urine Urobilinogen 0.2, Ur Leukocyte Esterase Negative, Urine RBC None, Urine WBC None, Ur Squamous Epith Cells None, Amorphous Sediment Trace, Urine Bacteria None 06/13/23 11:27 06/13/23 11:27 Orders (Tests/Meds): ORDERS Category Date Time Status CT head/brain wo con Stat Cat Scan 06/13/23 11:45 Completed CMP [Comprehensive Metabolic Panel] Stat Lab 06/13/23 11:27 Completed Complete Blood Count Auto Diff Stat Lab 06/13/23 11:27 Completed Lipase Stat Lab 06/13/23 11:27 Completed T4 (Thyroxine) Stat Lab 06/13/23 11:27 Completed Thyroid Stimulating Hormone Stat Lab 06/13/23 11:27 Completed Urinalysis and Microscopic Stat Lab 06/13/23 12:21 [facility] 06/13/23 11:20 Completed ECG Data Tracing #1: I reviewed this ECG and interpreted as documented below: Sinus bradycardia with a ventricular rate of [address] changes concerning for ischemia. Normal axis and intervals. ECG initial impression date: 06/13/23 ECG initial impression time: 11:21 Medical Decision Narrative: In summary, this patient is a 38-year-old male presenting to the Emergency Department for evaluation of multiple complaints including daily headaches and nausea. Differential diagnoses considered include but are not limited to int racranial mass, migraine, tension headaches, stress, anxiety, renal dysfunction, electrolyte derangements, thyroid abnormality. Ruling out the most morbid conditions drove assessment. On exam, the patient is nontoxic-appearing and neurologically intact with normal vital signs on cardiac telemetry. EKG was obtained and is reassuring without notable dysrhythmia. Based on the constellation of symptoms, I feel that it is most likely related to stress/anxiety, and the headaches that he describes seem to be more like tension headaches to me, however I feel it is necessary to exclude intracranial mass as a potential cause given the daily nature that is worse in the mornings. Workup included CBC, CMP, TSH, T4, urinalysis, and CT scan of the head without contrast. I independently interpreted CT scan prior to the radiologist read and noted no masses, lesions, or other concern. Please see their read for final interpretation. Labs were obtained that demonstrated no acutely concerning abnormalities. On reassessment, patient is resting comfortably with normal vital signs on cardiac telemetry. Given reassuring workup and exam, feel that he is appropriate for discharge. I feel his symptoms are likely a manifestation of his anxiety, but his morning nausea and gastritis type symptoms could indicate peptic ulcer disease or GERD. For this, he was given prescription for pantoprazole. He is also given prescription for hydroxyzine to take as needed for anxiety and panic. I instructed that he follow-up very closely with a primary care provider. He was given instructions for close patient follow-up, strict return precautions, and he was discharged in stable condition after all questions were answered. Critical Care Critical Care Time Critical Care Time: No
[2023-06-13 12:02] LABS: Basophils % 0.4 % (0.1-2.0); Eosinophils % 0.5 % (0.1-12.0); Hematocrit 49.2 % (42.0-52.0); Hemoglobin 16.5 g/dL (14.1-18.0); Lymphocytes # 1.3 K/mm3 (0.7-4.5); Lymphocytes % 24.9 % (10-50); Mean Corpuscular HGB Conc 33.6 g/dL (31.8-35.4); Mean Corpuscular Hemoglobin 30.9 pg (27.0-31.2); Mean Corpuscular Volume 91.9 fl (80-94); Mean Platelet Volume 8.4 fl (7.4-10.4); Monocytes # 0.4 K/mm3 (0.1-1.0); Monocytes % 6.7 % (1.7-9.3); Neutrophils # 3.6 K/mm3 (1.8-7.8); Neutrophils % 67.6 % (37.0-80.0); Platelet Count 237 K/mm3 (142-424); Red Blood Count 5.36 M/mm3 (4.60-6.20); Red Cell Distribution Width 13.1 % (11.5-17.5); White Blood Count 5.3 K/mm3 (4.8-10.8)
[2023-06-13 12:13] LABS: T4 (Thyroxine) 8.8 ug/dl (5.53-11.0)
[2023-06-13 12:27] LABS: Thyroid Stimulating Hormone 0.84 uIU/mL (0.465-4.68)
[2023-06-13 12:41] LABS: Microscopic, Urine URINE MICROSCOPIC (MICROSCOPIC)
[2023-06-13 12:46] LABS: Appearance,Urine CLEAR (Clear); Bilirubin,Urine Negative (Negative); Blood, Urine Negative (Negative); Color,Urine YELLOW (Yellow); Glucose,Urine (UA) Negative (Negative); Ketones,Urine Negative (Negative); Leukocyte Esterase,Urine Negative (Negative); Nitrate,Urine Negative (Negative); Protein,Urine Negative (Negative); Specific Gravity, Urine 1.015 (1.005-1.030); Urobilinogen,Urine 0.2 EU/dl (0.2)
--- NOTE | 2023-06-13 13:17 | PC.NURSE ---
rounded on pt, updated, waiting on ct read, no needs at this time
[2023-06-13 13:25] LABS: Amorphous Sediment,Urine Trace /lpf
== END 2023-06-13 14:11 | disposition home or self-care (01) ==
PROVIDERS: Emergency Provider Emergency Medicine
DX: G44.221 Chronic tension-type headache, intractable (principal); R11.2 Nausea with vomiting, unspecified; R53.83 Other fatigue; R42 Dizziness and giddiness; F41.9 Anxiety disorder, unspecified; R00.1 Bradycardia, unspecified
CPT/HCPCS: 70450; 80053; 81001; 83690; 84436; 84443; 85025; 93005; 99285

== ENCOUNTER 2023-08-13 18:14 | Emergency (ER) | payer OTHER, MEDICAID, SELFPAY ==
[2023-08-13 18:45] VITALS: BP 121/86; PULSE 81; RESP 19; TEMP 36.6; O2SAT 100; BMI 28.2
--- NOTE | 2023-08-13 19:02 | XR_ITS ---
PROCEDURE INFORMATION: Exam: XR Left Hand Exam date and time: 08/13/2023 7:11 PM Age: 38 years old Clinical indication: Injury or trauma; Other: Cut with saw; Laceration; Hand; Left; Additional info: Cut finger with jigsaw TECHNIQUE: Imaging protocol: Radiologic exam of the left hand. Views: 3 or more views. COMPARISON: No relevant prior studies available. FINDINGS: Bones/joints: No acute osseous injury. Soft tissues: There is some soft tissue swelling. No radiopaque foreign body is seen. IMPRESSION: No radiopaque foreign body or acute osseous abnormality.
--- NOTE | 2023-08-13 19:10 | ED_ITS ---
Discharge Plan Disposition Patient Disposition: Home, Self-Care Condition: Good Prescriptions Prescriptions: No Action hydroxyzine HCl 25 mg tablet 25 mg PO Q8H PRN (Reason: anxiety) Qty: 20 0RF pantoprazole 40 mg tablet,delayed release (DR/EC) 40 mg PO DAILY Qty: 30 0RF Referrals Follow up/Referrals: Provider,Referral, MD [Primary Care Provider] - See instructions Activity Restrictions/Add. Instructions Additional Instructions/Restrictions: Suture instructions: ?You have required stitches or [facility] today. Please read the following instructions so you know how to care for them: ?1. Keep wound area dry for the first 24 hours. 2?? May clean gently with mild soap and water, after 48 hours to prevent crusting over suture knots. 3. You may shower if your provider gives permission but do not take a bath until the skin is healed.. 4. Never leave a wet dressing or Band-Aid on your stitches as this allows bacteria to reach the area and may cause infection. Band-aids can cause the wound to sweat and not recommended to wear for long periods of time Watch for signs of infection: ? Increasing redness, tenderness or warmth around the suture site ? Unusual swelling around the site ? Appearance of pus around each suture or any red streaks ? Fever If you develop any of the above signs or symptoms of infection, Follow up with Family Physician immediately 5. Suture removal in 10-12____days 6. Return to [facility] or follow up with family doctor for removal. This can be done by any medical provider dur?ing regular hours on Saturday through Saturday, by appointment. Clinical Impressions Clinical Impression: Laceration Instructions Patient Instructions: DI for Laceration Repair Discharge ED Provider: Leticia Rodrigues [facility] [place] HPI General Stated complaint: AO 08/12, left middle finger laceration Mode of Arrival: Ambulatory Source of Information: Patient Limitations: No Limitations Time Seen by Provider: 08/13/23 19:10 Description of Symptoms (Recalled from Triage Doc. by RN): Pt's symptoms are he cut his left middle finger with a jigsaw. HEENT Symptoms (Recalled from RN notes): No Resp Symptoms (Recalled from RN notes): No Skin Symptoms (Recalled from RN notes): Yes MS Symptoms (Recalled from RN notes): Yes Functional Status (Recalled from RN notes): n/a History of Present Illness Provider Complaint: Patient states that he was using a jigsaw earlier and it slipped and he cut tip of his left middle finger States that he wasnt sure if it may need sutures or not but was having a hard time to get it to stop bleeding so he came in Related Data Previous Rx's Medication Instructions Recorded hydroxyzine HCl 25 mg tablet 25 mg PO Q8H PRN anxiety #20 tabs 06/13/23 pantoprazole 40 mg tablet,delayed 40 mg PO DAILY #30 tabs 06/13/23 release Allergies Allergy/AdvReac Type Severity Reaction Status Date / Time No Known Allergies Allergy Verified 08/13/23 19:05 Worker's Comp Is this a Worker's Comp case?: No [facility] Disclaimer: The information contained in this section may have been updated after the patient was seen, as this information can be updated by other users. 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 current occupational exposures/hazards: Yes ROS Obtained: Yes All systems reviewed & no additional complaints except as documented and Yes Systems reviewed as appropriate & no additional complaints except as documented ENT Ears, Nose, Mouth, and Throat: Reports system reviewed and no additional complaints, except as documented and Reports as per HPI Cardiovascular Cardiovascular: Reports system reviewed and no additional complaints, except as documented and Reports as per HPI Respiratory Respiratory: Reports system reviewed and no additional complaints, except as documented and Reports as per HPI Integumentary/Breasts Skin/Breast: Reports system reviewed and no additional complaints, except as documented, Reports as per HPI and Reports other (laceration to tip of left middle finger) Physical Exam General General appearance: alert and in no apparent distress Respiratory Respiratory exam: Present normal lung sounds bilaterally; Absent respiratory distress or wheezes Cardiovascular Cardiovascular exam: Present regular rate, normal rhythm and normal heart sounds Expanded Upper Extremity Exam Left: Hand L/R back image: 2 1. laceration noted to tip of finger beside nail Neurological Exam Neurological exam: Present alert, oriented X3 and normal gait Medical Decision Making Mars Inquiry Pt receiving controlled substance: No Mars was queried for this patient: No Vital Signs: 08/13/23 18:45 Temperature 97.8 F Temperature Source Oral Pulse Rate [Right Radial] 81 Respiratory Rate 19 Blood Pressure [Right Arm] 121/86 Blood Pressure Mean [Right Arm] 97 Blood Pressure Source [Right Arm] Automatic Cuff Blood Pressure Position [Right Arm] Sitting 02 Sat by Pulse Oximetry 100 Oxygen Delivery Method Room Air Orders (Tests/Meds): ORDERS Category Date Time Status Hand XR left minimum 3 views [XR hand LT min 3V] Stat Exams 08/13/23 19:02 Ordered Radiology Data #1: Image(s): Hand Image Reviewed: Yes I have reviewed radiologist's interpretation FINDINGS: Bones/joints: No acute osseous injury. Soft tissues: There is some soft tissue swelling. No radiopaque foreign body is seen. IMPRESSION: No radiopaque foreign body or acute osseous abnormality. Procedures Laceration Laceration 1: Site: finger Side (If applicable): left Size (cm): 1 Description: linear Depth: simple, single layer Local Anesthetic: lidocaine 1% Amount of anesthesia used (mL): 1 Pre-repair: wound explored and irrigated extensively Skin layer closed with: nylon Size (cm): 5-0 Number of sutures: 4 Technique: simple, interrupted and other (wound edges approximated well)
[2023-08-13] MEDS: TET/DIPHTH/PERT-ADULT 0.5ML SYRINGE 0.5 ML IM (20:10)
[2023-08-13 20:21] VITALS: BP 121/86; PULSE 81; RESP 19; TEMP 36.6; O2SAT 100
--- NOTE | 2023-08-13 20:22 | PC.NURSE ---
Placed 4 stitches in left middle finger.
== END 2023-08-13 20:21 | disposition home or self-care (01) ==
PROVIDERS: Emergency Provider Nurse Practitioner
DX: S61.213A Laceration without foreign body of left middle finger without damage to nail, initial encounter (principal); W31.2XXA Contact with powered woodworking and forming machines, initial encounter; Z23 Encounter for immunization
CPT/HCPCS: 12001; 73130; 90471; 90715; 99213; 99214; G0463

== ENCOUNTER 2023-08-23 15:57 | Emergency (ER) | payer OTHER, MEDICAID, SELFPAY ==
[2023-08-23 17:10] VITALS: BP 115/88; PULSE 56; RESP 18; TEMP 36.5; O2SAT 99; BMI 23.6
[2023-08-23 17:15] VITALS: BP 115/88; PULSE 56; RESP 18; TEMP 36.5; O2SAT 99
== END 2023-08-23 17:18 | disposition home or self-care (01) ==
LOC: UTC 15:59
PROVIDERS: Emergency Provider Nurse Practitioner
DX: Z48.02 Encounter for removal of sutures (principal)

== ENCOUNTER 2023-11-05 12:23 | Emergency (ER) | payer OTHER, MEDICAID, SELFPAY ==
[2023-11-05 12:24] VITALS: BP 135/97; PULSE 54; RESP 18; TEMP 36.7; O2SAT 100; BMI 23.0
--- NOTE | 2023-11-05 12:42 | ED_ITS ---
Discharge Plan Disposition Patient Disposition: Home, Self-Care Condition: Good Chief Complaint: Weakness Prescriptions Prescriptions: No Action hydroxyzine HCl 25 mg tablet 25 mg PO Q8H PRN (Reason: anxiety) Qty: 20 0RF pantoprazole 40 mg tablet,delayed release (DR/EC) 40 mg PO DAILY Qty: 30 0RF Referrals Follow up/Referrals: Casi Kowalski MD [Staff Physician] - See instructions Provider,MD Sally [Primary Care Provider] - See instructions Activity Restrictions/Add. Instructions Additional Instructions/Restrictions: You have been evaluated in the ED for your complaints. Please take Tylenol and ibuprofen as needed for your headache. I provided you with information to establish care with a primary care provider. I have also provided you with a referral to neurology to further discuss your migraine headaches as your neurologist has retired. Please return to ED for any new or worsening symptoms. Clinical Impressions Clinical Impression: Headache, migraine Discharge ED Provider: Jamil Davies Adult HPI General Chief complaint: Weakness Stated complaint: right and left side numbness Time Seen by Provider: 11/05/23 12:42 Mode of Arrival: Ambulatory Source of Information: Patient Limitations: No Limitations Description of Symptoms (Recalled from ER Triage Doc. by RN): c/o right and left sided weakness. Pt states that he got a mirgraine around 1100am which is when his right side went numb, visual change, around 1145am left side went numb, pt states that his mirgraines in the past caused the same symptoms as he has now, has medicine for migraine but did not take it, Had some medicine for nausea (zofran) which he took around 1115am. NIHSS 0 History of Present Illness HPI narrative: 38-year-old male with past medical history significant for anxiety, migraine headaches noting that he was on Maxalt but ran out recently, presents today for evaluation concerning migraine headache and numbness. Patient states that his headache began around 11 AM this morning at which time he also developed right- sided numbness which moved to his left side. He also states that he had photophobia and phonophobia during that time. Also had somewhat of poor vision during onset that has since resolved. He states that his symptoms including his numbness are the exact same as when he has his migraine headaches. He comes to the ED today because he is out of his medications. He has been able to ambulate and states that his symptoms are improved as his headache improves. Headache currently at a 5 out of 10. No further complaints Related Data Previous Rx's Medication Instructions Recorded hydroxyzine HCl 25 mg tablet 25 mg PO Q8H PRN anxiety #20 tabs 06/13/23 pantoprazole 40 mg tablet,delayed 40 mg PO DAILY #30 tabs 06/13/23 release Allergies Allergy/AdvReac Type Severity Reaction Status Date / Time No Known Allergies Allergy Verified 08/13/23 19:05 [facility] Disclaimer: The information contained in this section may have been updated after the patient was seen, as this information can be updated by other users. 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 current occupational exposures/hazards: Yes ROS Obtained: Yes All systems reviewed & no additional complaints except as documented Physical Exam General General appearance: alert and in no apparent distress Head Head exam: atraumatic and normocephalic Eye Eye exam: Present normal appearance, PERRL and EOMI ENT ENT exam: Present normal oropharynx and mucous membranes moist Neck Neck exam: Present full ROM; Absent meningismus Respiratory Respiratory exam: Absent respiratory distress, wheezes, stridor or accessory muscle use Cardiovascular Cardiovascular exam: Present normal rhythm Abdominal Exam Abdominal exam: Present soft; Absent distention, tenderness, guarding, rebound or rigidity Neurological Exam Neurological exam: Present alert, oriented X3 and CN II-XII intact; Absent motor sensory deficit Psychiatric Psychiatric exam: Present normal affect and normal mood Skin Skin exam: Present warm and dry Medical Decision Making Medical Records Medical records reviewed: Yes I reviewed the patient's medical records. Mars Inquiry Pt receiving controlled substance: No Mars was queried for this patient: No Vital Signs: 11/05/23 12:24 11/05/23 13:01 11/05/23 13:30 Temperature 98.0 F Temperature Source Oral Pulse Rate 62 68 Pulse Rate [Left Radial] 54 L Respiratory Rate 18 Blood Pressure 109/75 L 108/69 L Blood Pressure [Right Arm] 135/97 H Blood Pressure Mean [Right Arm] 109 Blood Pressure Source [Right Arm] Automatic Cuff Blood Pressure Position [Right Arm] Sitting 02 Sat by Pulse Oximetry 100 99 99 Oxygen Delivery Method Room Air Room Air Room Air Lab Data Lab Results 11/05/23 12:35: WBC 5.5, RBC 5.32, Hgb 16.4, Hct 48.7, MCV 91.5, MCH 30.8, MCHC 33.7, RDW 13.6, Plt Count 194, MPV 7.9, Neut % (Auto) 60.2, Lymph % (Auto) 30.7, Gooding % (Auto) 7.0, Eos % (Auto) 1.3, Baso % (Auto) 0.8, Neut # (Auto) 3.3, Lymph # (Auto) 1.7, Gooding # (Auto) 0.4, Eos # (Auto) 0.1, Baso # (Auto) 0.0, Sodium 141, Potassium 3.8, Chloride 105, Carbon Dioxide 29, Anion Gap 10.8, BUN 11, Creatinine 1.00, Estimated Creat Clear 110, Estimated GFR 84, Est GFR ( Amer) 102, Glucose 94, Calcium 9.8 11/05/23 12:35 11/05/23 12:35 Orders (Tests/Meds): ED MEDICATIONS Discontinued Medications Generic Name Dose Route Start Last Admin Trade Name Olayinkaq PRN Reason Stop Dose Admin Diphenhydramine HCl 12.5 mg 11/05/23 12:48 11/05/23 13:05 Diphenhydramine 50mg/Ml Vial IV 11/05/23 12:49 12.5 mg ONCE ONE Administration Lactated Ringer's 1,000 mls @ 999 mls/hr 11/05/23 12:51 11/05/23 13:05 Lactated Ringer's 1000 Ml Bag IV 11/05/23 13:51 999 mls/hr .Q1H1M ONE Administration Ketorolac Tromethamine 15 mg 11/05/23 12:48 11/05/23 13:05 Ketorolac 30mg/Ml Vial IV 11/05/23 12:49 15 mg ONCE ONE Administration Prochlorperazine Edisylate 10 mg 11/05/23 12:48 11/05/23 13:05 Prochlorperazine 10mg/2ml Vial IV 11/05/23 12:49 10 mg ONCE ONE Administration ORDERS Category Date Time Status BMP [Basic Metabolic Panel] Stat Lab 11/05/23 12:35 Completed CBC w/Auto Diff [Complete Blood Count Auto Diff] Stat Lab 11/05/23 12:35 Completed Medical Decision Narrative: 38-year-old male with past medical history significant for anxiety, migraine headaches noting that he was on Maxalt but ran out recently, presents today for evaluation concerning migraine headache and numbness. Patient states that his headache began around 11 AM this morning at which time he also developed right- sided numbness which moved to his left side. He also states that he had photophobia and phonophobia during that time. Also had somewhat of poor vision during onset that has since resolved. He states that his symptoms including his numbness are the exact same as when he has his migraine headaches. He comes to the ED today because he is out of his medications. He has been able to ambulate and states that his symptoms are improved as his headache improves. Denies any head trauma or blood thinner use. On assessment he was hemodynamically stable and in no acute distress. Afebrile. Chest clear to auscultation bilaterally. Abdomen soft nondistended nontender palpation. His neurological exam was nonfocal. He had 5 out of 5 strength in bilateral upper and lower extremities. Negative Romberg. He was able to ambulate without difficulty. NIH of 0. Otherwise exam finds unremarkable given diagnoses include admitted migraine headache, tension headache, cluster headache, electrolyte disturbance, TIA, among others. His labs today have been reassuring. No elevation in WBC at 5.5. BMP with no electrolyte derangements. He was given a migraine cocktail consisting of Compazine, Benadryl and Toradol and was monitored. On reassessment he remains hemodynamically stable and in no acute distress. He states that his headache is much improved at this time as well as resolution of his numbness. I discussed ED workup and results as well as current plan to discharge. He does not have a primary care physician or neurologist so I will provide referrals so that he can be reassessed for further medical interventions.. He will take Tylenol and ibuprofen as needed for his headaches. I provided him with strict return ED precautions. He verbalized understanding and agreement with plan. Subsequently discharged hemodynamically stable, neurovascularly intact and in no acute distress. Critical Care Critical Care Time Critical Care Time: No
[2023-11-05 13:00] LABS: Basophils % 0.8 % (0.1-2.0); Eosinophils # 0.1 K/mm3 (0.0-0.4); Eosinophils % 1.3 % (0.1-12.0); Hematocrit 48.7 % (42.0-52.0); Hemoglobin 16.4 g/dL (14.1-18.0); Lymphocytes # 1.7 K/mm3 (0.7-4.5); Lymphocytes % 30.7 % (10-50); Mean Corpuscular HGB Conc 33.7 g/dL (31.8-35.4); Mean Corpuscular Hemoglobin 30.8 pg (27.0-31.2); Mean Corpuscular Volume 91.5 fl (80-94); Mean Platelet Volume 7.9 fl (7.4-10.4); Monocytes # 0.4 K/mm3 (0.1-1.0); Neutrophils # 3.3 K/mm3 (1.8-7.8); Neutrophils % 60.2 % (37.0-80.0); Platelet Count 194 K/mm3 (142-424); Red Blood Count 5.32 M/mm3 (4.60-6.20); Red Cell Distribution Width 13.6 % (11.5-17.5); White Blood Count 5.5 K/mm3 (4.8-10.8)
[2023-11-05 13:01] VITALS: BP 109/75; PULSE 62; O2SAT 99
[2023-11-05 13:02] LABS: Chloride 105 mmol/L (98-107); Potassium 3.8 mmoL/L (3.5-5.1); Sodium 141 mmol/L (136-145)
[2023-11-05 13:05] LABS: Anion Gap 10.8 mEq/L (5-15); Blood Urea Nitrogen 11 mg/dl (9-20); Calcium 9.8 mg/dl (8.4-10.2); Carbon Dioxide 29 mmol/L (22.0-30.0); Creatinine Clearance Estimated 110 mL/min (50-200); Estimated Glomerular Filt Rate 84 ml/min (>60); GFR (African American) 102 ML/MIN (>60); Glucose 94 mg/dl (74-100)
[2023-11-05] MEDS: KETOROLAC 30MG/ML VIAL 15 MG IV (13:05)
[2023-11-05] MEDS: diphenhydrAMINE 50MG/ML VIAL 12.5 MG IV (13:05)
[2023-11-05] MEDS: LACTATED RINGERS 1000ML 1,000 ML 999 ML IV (13:05)
[2023-11-05] MEDS: PROCHLORPERAZINE 10MG/2ML VIAL 10 MG IV (13:05)
[2023-11-05 13:30] VITALS: BP 108/69; PULSE 68; O2SAT 99
[2023-11-05 14:21] VITALS: BP 100/67; PULSE 52; RESP 16; TEMP 36.7; O2SAT 99
[2023-11-05 14:26] VITALS: BP 108/69; PULSE 68; RESP 18; TEMP 36.6
== END 2023-11-05 14:26 | disposition home or self-care (01) ==
PROVIDERS: Emergency Provider Emergency Medicine
DX: G43.909 Migraine, unspecified, not intractable, without status migrainosus (principal)
CPT/HCPCS: 80048; 85025; 96361; 96374; 96375; 99284; J0780; J1200; J1885; J7120

== ENCOUNTER 2024-07-15 03:13 | Emergency (ER) | payer OTHER, SELFPAY ==
[2024-07-15 03:19] VITALS: BP 143/97; PULSE 53; RESP 20; TEMP 36.4; O2SAT 100; BMI 24.4
--- NOTE | 2024-07-15 03:42 | CT_ITS ---
PROCEDURE INFORMATION: Exam: CT Abdomen And Pelvis With Contrast Exam date and time: 07/15/2024 4:17 AM Age: 39 years old Clinical indication: Abdominal pain; Additional info: R o kidney stone TECHNIQUE: Imaging protocol: Computed tomography of the abdomen and pelvis with contrast. Radiation optimization: All CT scans at this facility use at least one of these dose optimization techniques: automated exposure control; mA and/or kV adjustment per patient size (includes targeted exams where dose is matched to clinical indication); or iterative reconstruction. Contrast material: ISOVUE; Contrast volume: 75 ml; Contrast route: IV; COMPARISON: CT ABDOMEN PELVIS WO CON 04/11/2021 7:59 AM FINDINGS: Lungs: Lung bases are clear as visualized. Heart: Base of heart is unremarkable as visualized. Liver: Normal. No mass. Gallbladder and biliary ducts: Normal. No calcified stones. No ductal dilation. Pancreas: Normal. No ductal dilation. Spleen: Normal. No splenomegaly. Adrenal glands: Normal. No mass. Kidneys and ureters: Just beyond the left ureteropelvic junction there is a 4.9 mm calcified urinary stone. The stone results in mild pelviectasis and [id number] left hydronephrosis. There is mild diffuse decreased left cortical enhancement with respect of the contralateral kidney. Mild left perinephric stranding with respect of the right kidney. Bilateral nonobstructive nephrolithiasis is seen in the upper poles. Stomach and bowel: Moderate colonic stool burden. Appendix: No evidence of appendicitis. Intraperitoneal space: Unremarkable. No free air. No significant fluid collection. Vasculature: Unremarkable. No abdominal aortic aneurysm. Lymph nodes: Unremarkable. No enlarged lymph nodes. Urinary bladder: Unremarkable as visualized. Reproductive: Unremarkable as visualized. Bones/joints: Unremarkable. No acute fracture. Soft tissues: Unremarkable. IMPRESSION: 1. Obstructing urinary calculus at the proximal left ureter just distal to the ureteropelvic junction. Details are highlighted above. 2. Bilateral nonobstructive nephrolithiasis is additionally seen in the upper poles.
[2024-07-15 03:47] LABS: Microscopic, Urine URINE MICROSCOPIC (MICROSCOPIC)
[2024-07-15 03:48] LABS: Basophils % 0.7 % (0.1-2.0); Eosinophils # 0.1 K/mm3 (0.0-0.4); Eosinophils % 2.4 % (0.1-12.0); Hematocrit 47.1 % (42.0-52.0); Lymphocytes # 1.7 K/mm3 (0.7-4.5); Lymphocytes % 31.5 % (10-50); Mean Corpuscular Hemoglobin 30.1 pg (27.0-31.2); Mean Corpuscular Volume 88.5 fl (80-94); Mean Platelet Volume 9.7 fl (7.4-10.4); Monocytes # 0.6 K/mm3 (0.1-1.0); Monocytes % 10.1 % (1.7-9.3); Neutrophils % 55.1 % (37.0-80.0); Platelet Count 212 K/mm3 (142-424); Red Blood Count 5.32 M/mm3 (4.60-6.20); Red Cell Distribution Width 11.9 % (11.5-17.5); White Blood Count 5.5 K/mm3 (4.8-10.8)
[2024-07-15] MEDS: ONDANSETRON 4MG/2ML VIAL 4 MG IV (03:50)
[2024-07-15] MEDS: KETOROLAC 30MG/ML VIAL 30 MG IV (03:50)
[2024-07-15 03:51] LABS: Appearance,Urine CLEAR (Clear); Bilirubin,Urine Negative (Negative); Blood, Urine MODERATE (Negative); Color,Urine YELLOW (Yellow); Glucose,Urine (UA) Negative (Negative); Ketones,Urine Negative (Negative); Leukocyte Esterase,Urine Negative (Negative); Nitrate,Urine Negative (Negative); Protein,Urine Negative (Negative); Urobilinogen,Urine 0.2 EU/dl (0.2)
[2024-07-15 03:53] LABS: Specific Gravity, Urine >= 1.030 (1.005-1.030)
[2024-07-15] MEDS: 0.9 % SODIUM CHLORIDE 1000ML 1,000 ML 999 ML IV (03:54)
[2024-07-15 04:00] VITALS: BP 114/74; PULSE 50; O2SAT 100
[2024-07-15 04:00] LABS: Squamous Epithelial Cell,Urine Occasional #/hpf (0-5)
[2024-07-15 04:01] LABS: Bacteria,Urine Trace /lpf
[2024-07-15 04:05] LABS: Albumin Level 4.7 g/dl (3.5-5.0); Chloride 105 mmol/L (98-107); Sodium 138 mmol/L (136-145)
[2024-07-15 04:06] LABS: Potassium 3.8 mmoL/L (3.5-5.1)
[2024-07-15 04:08] LABS: Alanine Aminotransferase 23 U/L (12-78); Albumin/Globulin Ratio 1.9 (1.1-1.8); Alkaline Phosphatase 57 U/L (38-126); Anion Gap 8.8 mEq/L (5-15); Aspartate Amino Transferase 29 U/L (17-59); Bilirubin,Total 0.5 mg/dl (0.2-1.3); Blood Urea Nitrogen 19 mg/dl (9-20); Carbon Dioxide 28 mmol/L (22.0-30.0); Creatinine Clearance Estimated 105 mL/min (50-200); Estimated Glomerular Filt Rate 75 ml/min (>60); GFR (African American) 91 ML/MIN (>60); Globulin 2.5 g/dL (1.3-3.2); Total Protein,Serum 7.2 g/dl (6.3-8.2)
--- NOTE | 2024-07-15 04:08 | HMH.EDGENADL ---
Discharge Plan Disposition Patient Disposition: Home, Self-Care Condition: Good Prescriptions Prescriptions: New tamsulosin 0.4 mg capsule 0.4 mg PO HS Qty: 10 0RF oxycodone 5 mg tablet 5 mg PO Q6H PRN (Reason: pain (scale score 7-10)) Qty: 10 0RF ondansetron 4 mg tablet,disintegrating 4 mg PO Q6H PRN (Reason: nausea and vomiting) Qty: 10 0RF No Action hydroxyzine HCl 25 mg tablet 25 mg PO Q8H PRN (Reason: anxiety) Qty: 20 0RF pantoprazole 40 mg tablet,delayed release (DR/EC) 40 mg PO DAILY Qty: 30 0RF Referrals Follow up/Referrals: Jose Sauceda MD [Referring] - See instructions (L obstructing ureteral stone) Provider,MD Sally [Primary Care Provider] - See instructions Activity Restrictions/Add. Instructions Additional Instructions/Restrictions: You were evaluated in the ER and are appropriate for discharge at this time. Take the prescribed tamsulosin as directed to help pass the stone. Increase your fluid intake to help increase urine output and push out the stone. Urinate into the provided strainer to help capture the stone. Take Tylenol and ibuprofen if needed for pain, do not exceed the recommended dose on the bottle. Drink water and eat a small snack each time you take these medications to avoid side effects. If these medications do not control your pain, then take the prescribed oxycodone. Do not drive or operate machinery after taking this medication as it can make you sleepy and cloud your judgment. This medication is potentially addictive so only take as directed. Take the prescribed ondansetron (Zofran) if needed for nausea and vomiting. Follow-up with Dr. Sauceda with urology as soon as possible. Call his office for immediate reevaluation. Also follow-up with your primary care doctor. Return to the ER with any new, worsening, or otherwise concerning symptoms. Clinical Impressions Clinical Impression: Left ureteral calculus, Hydronephrosis Stand Alone Forms Stand Alone Forms: Work/School Release Print Language Print Language: [place] Discharge ED Provider: Roberto Costa Adult HPI General Chief complaint: Abdominal Pain Stated complaint: R side abd pain, radiating to back, nausea Time Seen by Provider: 07/15/24 03:51 Mode of Arrival: Ambulatory Source of Information: Patient Description of Symptoms (Recalled from ER Triage Doc. by RN): RUQ pain radiating around right flank HX of kidney stones. History of Present Illness HPI narrative: 39-year-old male presents to the ER with complaints of abdominal pain. He started with right upper quadrant pain 5 days ago. He states since that time the pain has migrated around his back and is now worse in the left low flank/back. Patient reports over the last few days he was able to control his pain with [id number] medications and muscle rub . He states tonight his pain worsened and is not localized in the left posterior flank became severe. He states that is nonradiating and he has had a few episodes of intermittent diarrhea. He states the pain is so severe at times it causes him to be nauseous and nearly vomit. He states eating and drinking does not change his symptoms. He does have history of kidney stones and states typically the pain stays on 1 side versus migrating like this pain has. He is unsure what could be causing his symptoms but is here for further evaluation. He reports having subjective fever with chills but no chest pain or difficulty breathing, no sore throat or congestion, no cough, dysuria, or hematuria. Related Data Previous Rx's ?Medication ?Instructions ?Recorded hydroxyzine HCl 25 mg tablet 25 mg PO Q8H PRN anxiety #20 tabs 06/13/23 pantoprazole 40 mg tablet,delayed 40 mg PO DAILY #30 tabs 06/13/23 release ondansetron 4 mg disintegrating 4 mg PO Q6H PRN nausea and 07/15/24 tablet vomiting #10 tabs oxycodone 5 mg tablet 5 mg PO Q6H PRN pain (scale score 07/15/24 7-10) #10 tabs tamsulosin 0.4 mg capsule 0.4 mg PO HS #10 caps 07/15/24 Allergies Allergy/AdvReac Type Severity Reaction Status Date / Time No Known Allergies Allergy Verified 08/13/23 19:05 [facility] Disclaimer: The information contained in this section may have been updated after the patient was seen, as this information can be updated by other users. 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 current occupational exposures/hazards: Yes Have you lived/traveled outside [place] in past 30 days?: No Contact w/someone who lives/traveled outside US past 30 days?: No Exposure to someone with infectious disease in past 14 days?: No Do you have a fever (greater than 100.4 F or 38 C)?: No Have you tested positive for COVID-19: No Exposed to someone with COVID-19 in past 14 days?: No Do you have a sore throat?: No Do you have a cough?: No Do you have any weakness?: No Do you have any diarrhea?: No Are you experiencing any unusual bleeding?: No Do you have any muscle aches/pain?: No Do you have any abdominal pain?: Yes Are you experiencing loss of taste or smell?: No Other Medical History Have you received the Flu Vaccine for this season: No Have you received the Pneumonia Vaccine: No ROS Obtained: Yes Systems reviewed as appropriate & no additional complaints except as documented Per HPI Physical Exam General General appearance: alert Comment: Uncomfortable appearing but not in extremis Head Head exam: atraumatic and normocephalic Eye Eye exam: Present PERRL and EOMI ENT ENT exam: Present mucous membranes moist Neck Neck exam: Present normal inspection and full ROM Chest Chest inspection: Present symmetric chest wall rise Respiratory Respiratory exam: Present normal lung sounds bilaterally; Absent respiratory distress, wheezes or stridor Cardiovascular Cardiovascular exam: Present regular rate and normal rhythm Abdominal Exam Abdominal exam: Present soft and tenderness (Mild right upper quadrant tenderness); Absent distention, guarding or rebound Extremities Exam Extremities exam: Present full ROM Back Exam Back exam: Present CVA tenderness (L) (Low left CVA tenderness); Absent CVA tenderness (R) Neurological Exam Neurological exam: Present alert and oriented X3; Absent motor sensory deficit Psychiatric Psychiatric exam: Present normal affect and normal mood Skin Skin exam: Present warm and dry Medical Decision Making Medical Records Medical records reviewed: Yes I reviewed the patient's medical records. Screening: Per USPSTF and CDC recommendations, given the prevalence of disease in our region, it is our hospital?s policy to screen for HIV and viral Hepatitis for all patients aged 18 and over and those with ongoing risk factors. MR Comment: Most recent encounter within our system was in October 2023 when patient came in for headache. No new prescriptions at that time. Mars Inquiry Pt receiving controlled substance: Yes Mars was queried for this patient: No Risks and benefits of using a controlled substance: were discussed with pt by me Comment: PDMP no controlled substances Vital Signs: 07/15/24 03:19 07/15/24 04:00 07/15/24 04:31 Temperature 97.6 F Temperature Source Oral Pulse Rate 50 L Pulse Rate [Right Brachial] 53 L Respiratory Rate 20 Blood Pressure 114/74 131/69 Blood Pressure [Right Arm] 143/97 H Blood Pressure Mean 95 Blood Pressure Mean [Right Arm] 112 Blood Pressure Source [Right Arm] Automatic Cuff Blood Pressure Position [Right Arm] Sitting 02 Sat by Pulse Oximetry 100 100 Oxygen Delivery Method Room Air 07/15/24 05:00 07/15/24 05:30 Temperature Temperature Source Pulse Rate 74 68 Pulse Rate [Right Brachial] Respiratory Rate Blood Pressure 106/64 L 101/58 L Blood Pressure [Right Arm] Blood Pressure Mean Blood Pressure Mean [Right Arm] Blood Pressure Source [Right Arm] Blood Pressure Position [Right Arm] 02 Sat by Pulse Oximetry 95 96 Oxygen Delivery Method Lab Data Lab Results 07/15/24 03:26: WBC 5.5, RBC 5.32, Hgb 16.0, Hct 47.1, MCV 88.5, MCH 30.1, MCHC 34.0, RDW 11.9, Plt Count 212, MPV 9.7, Neut % (Auto) 55.1, Lymph % (Auto) 31.5, [place] % (Auto) 10.1 H, Eos % (Auto) 2.4, Baso % (Auto) 0.7, Neut # (Auto) 3.0, Lymph # (Auto) 1.7, [place] # (Auto) 0.6, Eos # (Auto) 0.1, Baso # (Auto) 0.0, Sodium 138, Potassium 3.8, Chloride 105, Carbon Dioxide 28, Anion Gap 8.8, BUN 19, Creatinine 1.10, Estimated Creat Clear 105, Estimated GFR 75, Est GFR ( Amer) 91, Glucose 104 H, Calcium 9.4, Total Bilirubin 0.5, AST 29, ALT 23, Alkaline Phosphatase 57, Total Protein 7.2, Albumin 4.7, Globulin 2.5, Albumin/Globulin Ratio 1.9 H, Urine Color Yellow, Urine Appearance Clear, Urine pH 6.0, Ur Specific [place] >= 1.030, Urine Protein Negative, Urine Glucose (UA) Negative, Urine Ketones Negative, Urine Blood Moderate, Urine Nitrate Negative, Urine Bilirubin Negative, Urine Urobilinogen 0.2, Ur Leukocyte Esterase Negative, Urine RBC 10-20, Urine WBC None, Ur Squamous Epith Cells Occasional, Urine Bacteria Trace, HCV Ab KATIE w/Rflx PCR Qn Negative, HIV Ag/Ab Combo Qual Negative 07/15/24 03:26 07/15/24 03:26 Orders (Tests/Meds): ED MEDICATIONS Generic Name Dose Route Start Last Admin Trade Name Freq PRN Reason Stop Dose Admin Sodium Chloride 10 ml 07/15/24 04:23 07/15/24 04:24 Sodium Chloride 0.9% 10ml Syr (Rad Only) IV 08/14/24 04:22 10 ml NEEDED PRN Administration Maintain IV Site Tamsulosin HCl 0.4 mg 07/15/24 05:53 Tamsulosin 0.4mg Capsule PO 07/15/24 05:54 ONCE ONE Discontinued Medications Generic Name Dose Route Start Last Admin Trade Name Freq PRN Reason Stop Dose Admin Hydromorphone HCl 0.5 mg 07/15/24 04:24 07/15/24 04:30 Hydromorphone 2mg/Ml Syringe IV 07/15/24 04:25 0.5 mg ONCE ONE Administration Sodium Chloride 1,000 mls @ 999 mls/hr 07/15/24 03:52 07/15/24 03:54 Sod Chlor 0.9% 1000ml Bag IV 07/15/24 04:52 999 mls/hr .Q1H1M ONE Administration Iopamidol 75 ml 07/15/24 04:23 07/15/24 04:24 Iopamidol-370 (76%);100ml Bottle IV 07/15/24 04:24 75 ml ONCE ONE Administration Ketorolac Tromethamine 30 mg 07/15/24 03:42 07/15/24 03:50 Ketorolac 30mg/Ml Vial IV 07/15/24 03:43 30 mg ONCE ONE Administration Ondansetron HCl 4 mg 07/15/24 03:42 07/15/24 03:50 Ondansetron 4mg/2ml Vial IV 07/15/24 03:43 4 mg ONCE ONE Administration Promethazine HCl 12.5 mg 07/15/24 04:24 07/15/24 04:29 Promethazine Hcl 25mg/Ml 1ml Vial IV 07/15/24 04:25 12.5 mg ONCE ONE Administration Sodium Chloride 25 ml 07/15/24 04:24 07/15/24 04:34 Sodium Chloride 0.9% 25ml Bag IV 07/15/24 04:25 Not Given ONCE ONE ORDERS Category Date Time Status CT abdomen pelvis w con Stat Cat Scan 07/15/24 03:42 Completed Complete Blood Count Auto Diff Stat Lab 07/15/24 03:26 Completed Comprehensive Metabolic Panel Stat Lab 07/15/24 03:26 Completed HIV Combo Routine Lab 07/15/24 03:26 Completed Hepatitis C Ab Qual. W/ RFX Routine Lab 07/15/24 03:26 Completed Urinalysis and Microscopic Stat Lab 07/15/24 03:26 Completed Medical Decision Narrative: In summary, this 39-year-old male presents to the emergency department today with right upper quadrant and left flank pain. On initial evaluation patient is hemodynamically stable, afebrile, uncomfortable appearing but nontoxic, not in extremis, he has tenderness to palpation of the right upper quadrant as well as low left CVA tenderness. Differential diagnosis includes but is not limited to cholelithiasis, cholecystitis, transaminitis, kidney stone, ureterolithiasis, hydronephrosis, kidney dysfunction, urinary tract infection, pyelonephritis, diverticulitis, diverticulosis, colitis, mesenteric adenitis, among others. Based on these concerns, I ordered serum labs, CT imaging, urine studies. Patient initially received IV fluids, Toradol, Zofran for treatment. This did not adequately manage his pain and he continued having emesis so he received Dilaudid and Phenergan. Labs personally reviewed demonstrate unremarkable CBC with no leukocytosis or anemia, normal platelets, CMP with good kidney function, no actionable electrolyte abnormalities, UA negative for findings of infection but patient does have 10-[address] abdomen pelvis personally interpreted does not demonstrate obvious right upper quadrant pathology, patient does have small left ureteral stone approximately 5mm without mild hydronephrosis, see radiology read for final interpretation which is in agreement. He was made aware of incidental findings. Patient received tamsulosin for urinary tract dilation to help pass the stone. Stone is small enough he should be able to pass this independently. He is appropriate for discharge at this time since his pain is controlled. Patient was prescribed tamsulosin, ondansetron, and oxycodone for outpatient management. He was given explicit instructions on how to safely use the oxycodone and to only use this for severe, breakthrough pain. He was provided a urinary strainer. He was provided referral to Dr. Sauceda for urology follow-up. Patient was given instructions on symptomatic management, follow up instructions, and return precautions for the emergency department. Patient indicated understanding and was discharged in stable condition. Critical Care Critical Care Time Critical Care Time: No
[2024-07-15 04:09] LABS: Calcium 9.4 mg/dl (8.4-10.2); Glucose 104 mg/dl (74-100)
--- NOTE | 2024-07-15 04:20 | PC.NURSE ---
pt returned from radiology at this time.
--- NOTE | 2024-07-15 04:21 | PC.NURSE ---
Pt back from CT scan
[2024-07-15] MEDS: IOPAMIDOL-370 (76%);100ML BOTTLE 75 ML IV (04:24)
[2024-07-15] MEDS: SODIUM CHLORIDE 0.9% 10ML SYR (RAD ONLY) 10 ML IV (04:24)
[2024-07-15] MEDS: PROMETHAZINE HCL 25MG/ML 1ML VIAL 12.5 MG IV (04:29)
[2024-07-15] MEDS: HYDROMORPHONE 2MG/ML SYRINGE 0.5 MG IV (04:30)
[2024-07-15 04:31] VITALS: BP 131/69
--- NOTE | 2024-07-15 04:33 | PC.NURSE ---
Pt having worse pain and vomiting MD aware new order received
[2024-07-15 04:50] LABS: HIV Combo NEGATIVE (Negative)
[2024-07-15 04:57] LABS: Hepatitis C Ab Qual. W/ RFX NEGATIVE (Negative)
[2024-07-15 05:00] VITALS: BP 106/64; PULSE 74; O2SAT 95
[2024-07-15 05:30] VITALS: BP 101/58; PULSE 68; O2SAT 96
--- NOTE | 2024-07-15 05:50 | PC.NURSE ---
Pt resting quietly in bed Pain controlled at this time. Pt aware waiting on CT read
[2024-07-15] MEDS: TAMSULOSIN 0.4MG CAPSULE 0.4 MG PO (05:59)
--- NOTE | 2024-07-15 06:03 | PC.NURSE ---
urine strainer given to patient at this time. attempting to obtain ride for discharge due to medications he has recieved.
[2024-07-15 06:04] VITALS: BP 119/71; PULSE 80; RESP 16; TEMP 36.8; O2SAT 97
== END 2024-07-15 06:15 | disposition home or self-care (01) ==
PROVIDERS: Emergency Provider Emergency Medicine
DX: N20.0 Calculus of kidney (principal); N13.0 Hydronephrosis with ureteropelvic junction obstruction
CPT/HCPCS: 74177; 80053; 81001; 85025; 86803; 87389; 96361; 96374; 96375; 99285; J1171; J1885; J2405; J2550; J7030; Q9967

== ENCOUNTER 2024-08-11 19:52 | Emergency (ER) | payer OTHER, SELFPAY ==
--- NOTE | 2024-08-11 20:02 | ED_ITS ---
<Statement entered by Joel Cosme MD - 08/11/24 22:04> I was consulted by the CRISTOPHER, and we discussed the complexity of the problems being addressed. I approved the treatment and management plan for this patient's care in the emergency department, thus performing a substantive portion of the medical decision making. Joel Cosme MD Discharge Plan Disposition Patient Disposition: Home, Self-Care Condition: Good Prescriptions Prescriptions: New rizatriptan [Maxalt-HIP HOP ARTIST] 10 mg tablet,disintegrating See Rx Instructions .ROUTE .COMPLEX Qty: 20 0RF Rx Instructions: take 1 tab at onset of headache; if no relief may repeat 1 tab after at least 2 hrs; max = 3 tabs/24 hr promethazine 12.5 mg tablet 12.5 mg PO Q4H PRN (Reason: nausea and vomiting) Qty: 10 0RF No Action hydroxyzine HCl 25 mg tablet 25 mg PO Q8H PRN (Reason: anxiety) Qty: 20 0RF pantoprazole 40 mg tablet,delayed release (DR/EC) 40 mg PO DAILY Qty: 30 0RF tamsulosin 0.4 mg capsule 0.4 mg PO HS Qty: 10 0RF oxycodone 5 mg tablet 5 mg PO Q6H PRN (Reason: pain (scale score 7-10)) Qty: 10 0RF ondansetron 4 mg tablet,disintegrating 4 mg PO Q6H PRN (Reason: nausea and vomiting) Qty: 10 0RF Referrals Follow up/Referrals: Kojo Malin MD [Staff Physician] - See instructions Activity Restrictions/Add. Instructions Additional Instructions/Restrictions: I have given you 1 fill of Maxalt and Phenergan. I have also made the referral to Dr. Malin for you. Please call tomorrow to make your appointment. If you have any worsening new signs or symptoms return to the ER as needed Clinical Impressions Clinical Impression: Headache, migraine Qualifiers: Migraine type: chronic migraine (15 or more days per month) with aura Status migrainosus presence: without status migrainosus Intractability: not intractable Qualified Code(s): G43.E09 - Chronic migraine with aura, not intractable, without status migrainosus Print Language Print Language: Bhutanese Discharge ED Provider: Joel Cosme General Adult HPI <TAYLER Gillis - Last Filed: 08/11/24 21:54> General Chief complaint: Headache Stated complaint: Nausea,dizziness,chest tightness,numbness left carl Time Seen by Provider: 08/11/24 20:02 History of Present Illness HPI narrative: Patient presents for evaluation of a complex migraine. Patient has had complex migraines since age 11. He has been fully worked up evaluated by headache specialist throughout his life. However he does not currently have a PCP or headache specialist and is out of his abortive medications which were Maxalt and Phenergan. Patient reports that when he has a migraine he usually feels it in the base of his neck on the left side has vision changes and then has a severe right-sided headache that causes numbness on the left side of his body. He says that he describes it as like having a stroke. Over the last 6 months he has had increased frequency of these headaches but no new symptoms no focal neurologic deficits. He reports nausea and occasional vomiting when the headache is bad but denies any fever chills hemoptysis hematochezia melena hematemesis shortness of breath. Patient states that his symptoms usually last some time as short as 1 to 2 hours versus 1 to 2 days when it is really bad. Today's headache happened while he was at work and he presented because he is still having a headache now and is seeking headache relief. Related Data Previous Rx's ?Medication ?Instructions ?Recorded hydroxyzine HCl 25 mg tablet 25 mg PO Q8H PRN anxiety #20 tabs 06/13/23 pantoprazole 40 mg tablet,delayed 40 mg PO DAILY #30 tabs 06/13/23 release ondansetron 4 mg disintegrating 4 mg PO Q6H PRN nausea and 07/15/24 tablet vomiting #10 tabs oxycodone 5 mg tablet 5 mg PO Q6H PRN pain (scale score 07/15/24 7-10) #10 tabs tamsulosin 0.4 mg capsule 0.4 mg PO HS #10 caps 07/15/24 promethazine 12.5 mg tablet 12.5 mg PO Q4H PRN nausea and 08/11/24 vomiting #10 tabs rizatriptan 10 mg disintegrating See Rx Instructions PO .COMPLEX 08/11/24 tablet (Maxalt-HIP HOP ARTIST) #20 tabs Allergies Allergy/AdvReac Type Severity Reaction Status Date / Time No Known Allergies Allergy Verified 08/13/23 19:05 PFS <TAYLER Gillis - Last Filed: 08/11/24 21:54> [facility] Disclaimer: The information contained in this section may have been updated after the patient was seen, as this information can be updated by other users. 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 current occupational exposures/hazards: Yes Have you lived/traveled outside [place] in past 30 days?: No Contact w/someone who lives/traveled outside US past 30 days?: No Exposure to someone with infectious disease in past 14 days?: No Do you have a fever (greater than 100.4 F or 38 C)?: No Have you tested positive for COVID-19: No Exposed to someone with COVID-19 in past 14 days?: No Do you have a sore throat?: No Do you have a cough?: No Do you have any weakness?: No Do you have any diarrhea?: No Are you experiencing any unusual bleeding?: No Do you have any muscle aches/pain?: No Do you have any abdominal pain?: No Are you experiencing loss of taste or smell?: No Other Medical History Have you received the Flu Vaccine for this season: No Have you received the Pneumonia Vaccine: No <TAYLER Gillis - Last Filed: 08/11/24 21:54> ROS Obtained: Yes Systems reviewed as appropriate & no additional complaints except as documented Physical Exam <TAYLER Gillis - Last Filed: 08/11/24 21:54> General General appearance: alert and in no apparent distress Respiratory Respiratory exam: Present normal lung sounds bilaterally Cardiovascular Cardiovascular exam: Present regular rate Neurological Exam Neurological exam: Present alert, oriented X3, CN II-XII intact and normal gait; Absent motor sensory deficit Medical Decision Making <TAYLER Gillis - Last Filed: 08/11/24 21:54> Medical Records Medical records reviewed: Yes I reviewed the patient's medical records. Screening: Per USPSTF and CDC recommendations, given the prevalence of disease in our region, it is our hospital?s policy to screen for HIV and viral Hepatitis for all patients aged 18 and over and those with ongoing risk factors. Mars Inquiry Pt receiving controlled substance: No Vital Signs: 08/11/24 20:13 08/11/24 20:25 08/11/24 20:30 Temperature 98.1 F Temperature Source Oral Pulse Rate 68 64 Pulse Rate [Left] 65 Respiratory Rate 18 17 17 Blood Pressure 147/91 H 145/95 H Blood Pressure [Right Arm] 147/91 H Blood Pressure Mean [Right Arm] 109 02 Sat by Pulse Oximetry 100 100 100 Oxygen Delivery Method Room Air 08/11/24 20:45 08/11/24 21:47 Temperature 98.9 F Temperature Source Temporal Artery Scan Pulse Rate 72 58 L Pulse Rate [Left] Respiratory Rate 16 18 Blood Pressure 138/89 Blood Pressure [Right Arm] Blood Pressure Mean [Right Arm] 02 Sat by Pulse Oximetry 99 Oxygen Delivery Method Room Air Lab Data Lab results reviewed: Yes I reviewed the patient's lab results. Lab Results 08/11/24 20:09: WBC 6.3, RBC 5.08, Hgb 15.3, Hct 45.2, MCV 89.0, MCH 30.1, MCHC 33.8, RDW 12.0, Plt Count 212, MPV 9.8, Neut % (Auto) 57.0, Lymph % (Auto) 30.8, Norton % (Auto) 10.0 H, Eos % (Auto) 1.7, Baso % (Auto) 0.3, Neut # (Auto) 3.6, Lymph # (Auto) 1.9, Norton # (Auto) 0.6, Eos # (Auto) 0.1, Baso # (Auto) 0.0, Sodium 140, Potassium 4.2, Chloride 105, Carbon Dioxide 29, Anion Gap 10.2, BUN 10, Creatinine 0.90, Estimated Creat Clear 129, Estimated GFR 94, Est GFR ( Amer) 114, Glucose 94, Calcium 9.7, Magnesium 1.9, Total Bilirubin 0.7, AST 36, ALT 21, Alkaline Phosphatase 42, C-Reactive Protein 2.0, Total Protein 7.6, Albumin 4.5, Globulin 3.1, Albumin/Globulin Ratio 1.5 08/11/24 21:06: Urine Color Yellow, Urine Appearance Clear, Urine pH 7.0, Ur Specific Mcfarland 1.020, Urine Protein Negative, Urine Glucose (UA) Negative, Urine Ketones Negative, Urine Blood Negative, Urine Nitrate Negative, Urine Bilirubin Negative, Urine Urobilinogen 0.2, Ur Leukocyte Esterase Negative, Urine WBC Occasional, Ur Squamous Epith Cells Occasional, Amorphous Sediment 1+, Urine Bacteria Trace 08/11/24 20:09 08/11/24 20:09 Orders (Tests/Meds): ED MEDICATIONS Discontinued Medications Generic Name Dose Route Start Last Admin Trade Name Freq PRN Reason Stop Dose Admin Acetaminophen 1,000 mg 08/11/24 20:20 08/11/24 20:40 Acetaminophen 1,000mg/100ml Vial IV 08/11/24 20:21 1,000 mg ONCE ONE Administration Dexamethasone Sodium Phosphate 10 mg 08/11/24 20:20 08/11/24 20:32 Dexamethasone 4mg/Ml 5ml Mdv IV 08/11/24 20:21 10 mg ONCE ONE Administration Diphenhydramine HCl 50 mg 08/11/24 20:20 08/11/24 20:39 Diphenhydramine 50mg/Ml Vial IV 08/11/24 20:21 50 mg ONCE ONE Administration Sodium Chloride 1,000 mls @ 999 mls/hr 08/11/24 20:20 08/11/24 20:32 Sod Chlor 0.9% 1000ml Bag IV 08/11/24 21:20 999 mls/hr .Q1H1M ONE Administration Ketorolac Tromethamine 15 mg 08/11/24 20:20 08/11/24 20:35 Ketorolac 30mg/Ml Vial IV 08/11/24 20:21 15 mg ONCE ONE Administration Methocarbamol 500 mg 08/11/24 20:20 08/11/24 20:39 Methocarbamol 500mg Tablet PO 08/11/24 20:21 500 mg ONCE ONE Administration Prochlorperazine Edisylate 5 mg 08/11/24 20:20 08/11/24 20:34 Prochlorperazine 10mg/2ml Vial IV 08/11/24 20:21 5 mg ONCE ONE Administration Promethazine HCl 12.5 mg 08/11/24 21:07 08/11/24 21:10 Promethazine Hcl 25mg/Ml 1ml Vial IV 08/11/24 21:08 12.5 mg ONCE ONE Administration Sodium Chloride 25 ml 08/11/24 21:07 08/11/24 21:12 Sodium Chloride 0.9% 25ml Bag IV 08/11/24 21:08 25 ml ONCE ONE Administration ORDERS Category Date Time Status CBC w/Auto Diff [Complete Blood Count Auto Diff] Stat Lab 08/11/24 20:09 Completed CMP [Comprehensive Metabolic Panel] Stat Lab 08/11/24 20:09 Completed CRP [C-Reactive Protein] Stat Lab 08/11/24 20:09 Completed ESR [Erythrocyte Sedimentation Rate] Stat Lab 08/11/24 20:09 Received Magnesium Stat Lab 08/11/24 20:09 Completed UA [Urinalysis and Microscopic] Stat Lab 08/11/24 21:06 Completed Medical Decision Narrative: In summary patient is a 39-year-old male who presents to the emergency department for evaluation of complex migraine. Patient is hemodynamically stable with a blood pressure 147/91 heart rate 65 normal sinus rhythm on bedside monitor breathing 18 times a minute satting at 100% on room air afebrile at 98.1 upon arrival. Physical exam is remarkable for a Mammoth Coma Score 15 cranial nerves II through XII intact grossly to exam patient is awake alert and oriented person place and circumstance. Pupils equal round reactive to light, there is no nuchal rigidity, no palpable headache or palpation. He is no cervical spine tenderness, breath sounds clear and equal bilaterally to the bases without adventitious sounds. Patient has no focal neurologic deficits moves all 4 extremities has no loss of motor or sensory NIH stroke score 0.. Differential diagnosis includes complex migraine versus electrolyte abnormality versus cervicalgia etc. Initial workup was considered with labs and imaging however I had a shared decision-making discussion with the patient regarding his symptoms and he does not feel that he has any new symptoms and that these symptoms are very consistent with his migraine that he has had since age 11. I did offer imaging however patient via patient directed decision making did not feel that was necessary he was only seeking headache relief. Thus other diagnostic possibilities were not pursued at patient discretion and he has no red flags to indicate such. Initial interventions include crystalloid bolus Tylenol Toradol Decadron Robaxin Compazine. Initial workup reviewed by me shows his hematologic labs are nonactionable. Upon repeat evaluation patient had complete resolution of his symptoms after migraine cocktail. Given this patient is appropriate for discharge with a prescription for Maxalt and Phenergan refilled and referral to Dr. Malin at patient's request to establish care with PCP. Patient advised should he have any new continued or worsening signs or symptoms to return to the ER as needed. <Joel Cosme MD - Last Filed: 08/11/24 21:23> Vital Signs: 08/11/24 20:13 08/11/24 20:25 08/11/24 20:30 Temperature 98.1 F Temperature Source Oral Pulse Rate 68 64 Pulse Rate [Left] 65 Respiratory Rate 18 17 17 Blood Pressure 147/91 H 145/95 H Blood Pressure [Right Arm] 147/91 H Blood Pressure Mean [Right Arm] 109 02 Sat by Pulse Oximetry 100 100 100 Oxygen Delivery Method Room Air 08/11/24 20:45 08/11/24 21:47 Temperature 98.9 F Temperature Source Temporal Artery Scan Pulse Rate 72 58 L Pulse Rate [Left] Respiratory Rate 16 18 Blood Pressure 138/89 Blood Pressure [Right Arm] Blood Pressure Mean [Right Arm] 02 Sat by Pulse Oximetry 99 Oxygen Delivery Method Room Air Lab Data Lab Results 08/11/24 20:09: WBC 6.3, RBC 5.08, Hgb 15.3, Hct 45.2, MCV 89.0, MCH 30.1, MCHC 33.8, RDW 12.0, Plt Count 212, MPV 9.8, Neut % (Auto) 57.0, Lymph % (Auto) 30.8, Norton % (Auto) 10.0 H, Eos % (Auto) 1.7, Baso % (Auto) 0.3, Neut # (Auto) 3.6, Lymph # (Auto) 1.9, Norton # (Auto) 0.6, Eos # (Auto) 0.1, Baso # (Auto) 0.0, Sodium 140, Potassium 4.2, Chloride 105, Carbon Dioxide 29, Anion Gap 10.2, BUN 10, Creatinine 0.90, Estimated Creat Clear 129, Estimated GFR 94, Est GFR ( Amer) 114, Glucose 94, Calcium 9.7, Magnesium 1.9, Total Bilirubin 0.7, AST 36, ALT 21, Alkaline Phosphatase 42, C-Reactive Protein 2.0, Total Protein 7.6, Albumin 4.5, Globulin 3.1, Albumin/Globulin Ratio 1.5 08/11/24 21:06: Urine Color Yellow, Urine Appearance Clear, Urine pH 7.0, Ur Specific Mcfar[place] 1.020, Urine Protein Negative, Urine Glucose (UA) Negative, Urine Ketones Negative, Urine Blood Negative, Urine Nitrate Negative, Urine Bilirubin Negative, Urine Urobilinogen 0.2, Ur Leukocyte Esterase Negative, Urine WBC Occasional, Ur Squamous Epith Cells Occasional, Amorphous Sediment 1+, Urine Bacteria Trace Orders (Tests/Meds): ED MEDICATIONS Discontinued Medications Generic Name Dose Route Start Last Admin Trade Name Freq PRN Reason Stop Dose Admin Acetaminophen 1,000 mg 08/11/24 20:20 08/11/24 20:40 Acetaminophen 1,000mg/100ml Vial IV 08/11/24 20:21 1,000 mg ONCE ONE Administration Dexamethasone Sodium Phosphate 10 mg 08/11/24 20:20 08/11/24 20:32 Dexamethasone 4mg/Ml 5ml Mdv IV 08/11/24 20:21 10 mg ONCE ONE Administration Diphenhydramine HCl 50 mg 08/11/24 20:20 08/11/24 20:39 Diphenhydramine 50mg/Ml Vial IV 08/11/24 20:21 50 mg ONCE ONE Administration Sodium Chloride 1,000 mls @ 999 mls/hr 08/11/24 20:20 08/11/24 20:32 Sod Chlor 0.9% 1000ml Bag IV 08/11/24 21:20 999 mls/hr .Q1H1M ONE Administration Ketorolac Tromethamine 15 mg 08/11/24 20:20 08/11/24 20:35 Ketorolac 30mg/Ml Vial IV 08/11/24 20:21 15 mg ONCE ONE Administration Methocarbamol 500 mg 08/11/24 20:20 08/11/24 20:39 Methocarbamol 500mg Tablet PO 08/11/24 20:21 500 mg ONCE ONE Administration Prochlorperazine Edisylate 5 mg 08/11/24 20:20 08/11/24 20:34 Prochlorperazine 10mg/2ml Vial IV 08/11/24 20:21 5 mg ONCE ONE Administration Promethazine HCl 12.5 mg 08/11/24 21:07 08/11/24 21:10 Promethazine Hcl 25mg/Ml 1ml Vial IV 08/11/24 21:08 12.5 mg ONCE ONE Administration Sodium Chloride 25 ml 08/11/24 21:07 08/11/24 21:12 Sodium Chloride 0.9% 25ml Bag IV 08/11/24 21:08 25 ml ONCE ONE Administration ORDERS Category Date Time Status CBC w/Auto Diff [Complete Blood Count Auto Diff] Stat Lab 08/11/24 20:09 Completed CMP [Comprehensive Metabolic Panel] Stat Lab 08/11/24 20:09 Completed CRP [C-Reactive Protein] Stat Lab 08/11/24 20:09 Completed ESR [Erythrocyte Sedimentation Rate] Stat Lab 08/11/24 20:09 Received Magnesium Stat Lab 08/11/24 20:09 Completed UA [Urinalysis and Microscopic] Stat Lab 08/11/24 21:06 Completed ECG Data Tracing #1: Independently interpreted by me rate 71, rhythm is slightly irregular, sinus arrhythmia, axis is normal, no ST elevation in anatomical contiguous leads, sinus rhythm, QTc 365. Critical Care <TAYLER Gillis - Last Filed: 08/11/24 21:54> Critical Care Time Critical Care Time: Yes Attestation: On 08/11/24, the high probability of a clinically significant, sudden or life threatening deterioration of the following system(s) required my full and direct attention, intervention and personal management. The time I documented below is in addition to time spent performing reported procedures but includes the following listed in this critical care notation. Total Time Total Critical Care Time: 35
--- NOTE | 2024-08-11 20:03 | ECG_ITS ---
APPROVED REPORT Exam: Resting ECG HR:71 bpm ECG Measurements Heart Rate 71 AXES CA 167 P 61 QRSd 98 QRS 68 QT 343 T 111 QTc 365 Conclusion SINUS RHYTHM POSSIBLE RIGHT ATRIAL ENLARGEMENT [0.25mV P-WAVE] POSSIBLE LEFT ATRIAL ENLARGEMENT [-0.1mV P-WAVE IN V1/V2] NONSPECIFIC ST & T-WAVE ABNORMALITY BORDERLINE ECG Electronically signed by : ABDULAZIZ BURCH, 08/11/2024 22:19:19
[2024-08-11 20:13] VITALS: BP 147/91; PULSE 65; RESP 18; TEMP 36.7; O2SAT 100; BMI 24.4
[2024-08-11 20:25] VITALS: BP 147/91; PULSE 68; RESP 17; O2SAT 100
[2024-08-11 20:29] LABS: Basophils % 0.3 % (0.1-2.0); Eosinophils # 0.1 Kmm3 (0.0-0.4); Eosinophils % 1.7 % (0.1-12.0); Hematocrit 45.2 % (42.0-52.0); Hemoglobin 15.3 g/dL (14.1-18.0); Lymphocytes # 1.9 K/mm3 (0.7-4.5); Lymphocytes % 30.8 % (10-50); Mean Corpuscular HGB Conc 33.8 g/dL (31.8-35.4); Mean Corpuscular Hemoglobin 30.1 pg (27.0-31.2); Mean Platelet Volume 9.8 fl (7.4-10.4); Monocytes # 0.6 K/mm3 (0.1-1.0); Neutrophils # 3.6 K/mm3 (1.8-7.8); Nucleated Red Blood Cells # 0 10^3/uL; Nucleated Red Blood Cells % 0 %; Platelet Count 212 K/mm3 (142-424); Red Blood Count 5.08 M/mm3 (4.60-6.20); Red Cell Distribution Width-SD 39.3 fL; White Blood Count 6.3 K/mm3 (4.8-10.8)
[2024-08-11 20:30] VITALS: BP 145/95; PULSE 64; RESP 17; O2SAT 100
[2024-08-11] MEDS: DEXAMETHASONE 4MG/ML 5ML MDV 10 MG IV (20:32)
[2024-08-11] MEDS: 0.9 % SODIUM CHLORIDE 1000ML 1,000 ML 999 ML IV (20:32)
[2024-08-11] MEDS: PROCHLORPERAZINE 10MG/2ML VIAL 5 MG IV (20:34)
[2024-08-11] MEDS: KETOROLAC 30MG/ML VIAL 15 MG IV (20:35)
[2024-08-11] MEDS: diphenhydrAMINE 50MG/ML VIAL 50 MG IV (20:39)
[2024-08-11] MEDS: METHOCARBAMOL 500MG TABLET 500 MG PO (20:39)
[2024-08-11] MEDS: ACETAMINOPHEN 1,000MG/100ML VIAL 1000 MG IV (20:40)
[2024-08-11 20:45] VITALS: PULSE 72; RESP 16; O2SAT 99
[2024-08-11 20:58] LABS: Albumin Level 4.5 g/dl (3.5-5.0); Chloride 105 mmol/L (98-107); Potassium 4.2 mmoL/L (3.5-5.1); Sodium 140 mmol/L (136-145)
[2024-08-11 21:00] LABS: Blood Urea Nitrogen 10 mg/dl (9-20); Creatinine Clearance Estimated 129 mL/min (50-200); Estimated Glomerular Filt Rate 94 ml/min (>60); GFR (African American) 114 ML/MIN (>60)
[2024-08-11 21:01] LABS: Alanine Aminotransferase 21 U/L (12-78); Albumin/Globulin Ratio 1.5 (1.1-1.8); Alkaline Phosphatase 42 U/L (38-126); Anion Gap 10.2 mEq/L (5-15); Aspartate Amino Transferase 36 U/L (17-59); Bilirubin,Total 0.7 mg/dl (0.2-1.3); Calcium 9.7 mg/dl (8.4-10.2); Carbon Dioxide 29 mmol/L (22.0-30.0); Globulin 3.1 g/dL (1.3-3.2); Glucose 94 mg/dl (74-100); Total Protein,Serum 7.6 g/dl (6.3-8.2)
[2024-08-11 21:04] LABS: Magnesium 1.9 mg/dl (1.6-2.3)
[2024-08-11] MEDS: PROMETHAZINE HCL 25MG/ML 1ML VIAL 12.5 MG IV (21:10)
[2024-08-11] MEDS: SODIUM CHLORIDE 0.9% 25ML BAG 25 ML IV (21:12)
[2024-08-11 21:17] LABS: Microscopic, Urine URINE MICROSCOPIC (MICROSCOPIC)
[2024-08-11 21:18] LABS: Appearance,Urine CLEAR (Clear); Bilirubin,Urine Negative (Negative); Blood, Urine Negative (Negative); Color,Urine YELLOW (Yellow); Glucose,Urine (UA) Negative (Negative); Ketones,Urine Negative (Negative); Leukocyte Esterase,Urine Negative (Negative); Nitrate,Urine Negative (Negative); Protein,Urine Negative (Negative); Urobilinogen,Urine 0.2 EU/dl (0.2)
[2024-08-11 21:30] LABS: Amorphous Sediment,Urine 1+ /lpf; Bacteria,Urine Trace /lpf; Squamous Epithelial Cell,Urine Occasional #/hpf (0-5); WBC,Urine Occasional #/hpf (0-3)
[2024-08-11 21:47] VITALS: BP 138/89; PULSE 58; RESP 18; TEMP 37.2; O2SAT 99
[2024-08-11 22:30] LABS: Erythrocyte Sedimentation Rate 2 mm/hr (0-15)
== END 2024-08-11 21:53 | disposition home or self-care (01) ==
PROVIDERS: Physician Assistant; Emergency Provider Emergency Medicine
DX: G43.E09 Chronic migraine with aura, not intractable, without status migrainosus (principal); R11.2 Nausea with vomiting, unspecified; R42 Dizziness and giddiness
CPT/HCPCS: 80053; 81001; 83735; 85025; 85651; 86140; 93005; 96361; 96374; 96375; 99291; J0131; J0780; J1100; J1200; J1885; J2550; J7030